=== PATIENT | male | born 1965 | race Caucasian/White ===

== ENCOUNTER 2018-08-11 15:55 | Inpatient (IN) | payer OTHER ==
[~2018-08-11] VITALS: Ht 175.3 cm; Wt 90.7 kg
[2018-08-11] MEDS ORDERED: DOXYCYCLINE HY100 M7 PO (15:59)
[2018-08-11] MEDS ORDERED: PROTONIX40 MG ORAL (15:59)
[2018-08-11] MEDS ORDERED: ALPRAZOLAM ER2 MG ORAL (15:59)
[2018-08-11] MEDS ORDERED: ALPRAZOLAM0.5 MG PO (15:59)
[2018-08-11] MEDS ORDERED: LACTULOSE10 GM/153 PO (15:59)
[2018-08-11] MEDS ORDERED: SPIRONOLACTONE100 MG ORAL (16:02)
[2018-08-11] MEDS ORDERED: FLOMAX0.4 MG ORAL (16:02)
[2018-08-11] MEDS ORDERED: OXYCODONE HCL15 M1 ORAL (16:02)
[2018-08-11 16:07] VITALS: BP 90/65
--- NOTE | 2018-08-11 16:10 | NUR ---
ED Nurse Note: Patient brought in to ER by ambulance due to abdominal pain 07/31. pt is aao x4 but sleepy. Per pt, it is normal for him. pt has distended abdomen with RUQ hernia. pt denied pain on RUQ hernia site. pt has old surgical site on medial abdomen which has been many years according to pt. surgical site completely healed and clean and intact. pt has cirrhosis and gets paracentesis once a week. per pt, last paracentesis was Sunday. calm and cooperative.
[2018-08-11] MEDS ORDERED: Isovue-300 100ml vial INJ PRN (16:15)
[2018-08-11 16:35] LABS: ANION GAP 6 mmol/L (5-15); BLOOD UREA NITROGEN 20 mg/dL (7-18); CALCIUM 8.1 MG/DL (8.5-10.1); CARBON DIOXIDE 31 MMOL/L (21-32); CHLORIDE 97 MMOL/L (98-107); CREATININE 1.7 MG/DL (0.55-1.30); POTASSIUM 4.2 MMOL/L (3.5-5.1); SODIUM 134 MMOL/L (136-145)
[2018-08-11 16:37] LABS: INR 1.4 (0.9-1.1)
[2018-08-11 16:38] LABS: AMMONIA 112 umol/L (11-32)
[2018-08-11 16:42] LABS: BASOPHILS % (AUTO) 1.1 % (0.0-2.0); EOSINOPHILS % (AUTO) 0.7 % (0.0-3.0); HEMATOCRIT 23.6 % (42.0-52.0); HEMOGLOBIN 8.3 G/DL (14.2-18.0); LYMPHOCYTES % (AUTO) 9.6 % (20.0-45.0); MEAN CORPUSCULAR VOLUME 80 FL (80-99); MONOCYTES % (AUTO) 8.2 % (1.0-10.0); NEUTROPHILS % (AUTO) 80.4 % (45.0-75.0); PLATELET COUNT 105 K/UL (150-450); RED BLOOD COUNT 2.95 M/UL (4.70-6.10); RED CELL DISTRIBUTION WIDTH 13.2 % (11.6-14.8); WHITE BLOOD COUNT 7.5 K/UL (4.8-10.8)
[2018-08-11 16:51] LABS: ALANINE AMINOTRANSFERASE 12 U/L (12-78); ALBUMIN 2.6 G/DL (3.4-5.0); ALBUMIN/GLOBULIN RATIO 0.8 (1.0-2.7); ALKALINE PHOSPHATASE 141 U/L (46-116); ASPARTATE AMINO TRANSFERASE 27 U/L (15-37); BILIRUBIN,TOTAL 1.1 MG/DL (0.2-1.0)
[2018-08-11 16:52] LABS: BILIRUBIN,DIRECT 0.4 MG/DL (0.0-0.3)
[2018-08-11] MEDS ORDERED: Lactulose 20gm/30ml UDC ORAL ONE (17:00)
--- NOTE | 2018-08-11 17:45 | NUR ---
ED Nurse Note: pt has pressure ulcers with slough on both legs. 1 on Rt inner ankle and 1 on Lt inner foot. pictures were taken and uploaded.
--- NOTE | 2018-08-11 17:51 | NUR ---
ED Nurse Note: pt could not provided urine sample as stating "I peed right before I got here. nothing's coming out." ERMD made aware.
[2018-08-11] MEDS ORDERED: XANAX1 MG ORAL (17:55)
[2018-08-11] MEDS ORDERED: OXYCODONE HCL10 MG ORAL (17:57)
[2018-08-11] MEDS ORDERED: FUROSEMIDE40 MG ORAL (17:58)
[2018-08-11] MEDS ORDERED: CREON DR 6,0001 EACH PO (17:58)
[2018-08-11] MEDS ORDERED: Piperacillin/Tazobactam 3.375 GM in NS 110 ML IVPB ONE (18:00)
--- NOTE | 2018-08-11 18:07 | Emergency Room Report ---
History of Present Illness General Chief Complaint: Abdominal Pain Source: Patient, Family Member, EMS Present Illness HPI 53-year-old male presents ED for evaluation. Brought in by EMS from home for increased lethargy 1 day. Patient states he feels confused more than baseline. History of cirrhosis. States he has paracentesis once a week. States he has some pain to his abdomen. Dull, 7 out of 10, nonradiating. Denies alcohol or drug use. No other aggravating relieving factors. Denies any other associated symptoms Allergies: Coded Allergies: LATEX, NATURAL RUBBER (Verified Allergy, Unknown, 08/11/18) NSAIDS (NON-STEROIDAL ANTI-INFLAMMA (Verified Allergy, Unknown, 08/11/18) Patient History Past Medical History: other - cirrhosis Past Surgical History: other - paracentesis, hernia repair Pertinent Family History: none Social History: Denies: smoking, alcohol use, drug use Reviewed Nursing Documentation: PMH: Agreed; PSxH: Agreed Nursing Documentation-PMH Past Medical History: No History, Except For Review of Systems All Other Systems: negative except mentioned in HPI Physical Exam Vital Signs Date Time Temp Pulse Resp B/P (MAP) Pulse Ox O2 Delivery O2 Flow Rate FiO2 08/11/18 15:48 98.2 86 20 128/83 96 Room Air Sp02 EP Interpretation: reviewed, normal General Appearance: no apparent distress, lethargic Head: normocephalic Eyes: bilateral eye PERRL, bilateral eye Scleral Injection ENT: normal ENT inspection Neck: normal inspection Respiratory: chest non-tender, lungs clear, normal breath sounds, speaking full sentences Cardiovascular #1: regular rate, rhythm, no edema Gastrointestinal: normal bowel sounds, distended, hernia - RUQ Rectal: deferred Genitourinary: no CVA tenderness Musculoskeletal: normal inspection Neurologic: other - lethargic Psychiatric: other - lethargic Skin: normal inspection Lymphatic: normal inspection Medical Decision Making Diagnostic Impression: Primary Impression: Hepatic encephalopathy Additional Impressions: Cirrhosis Qualified Codes: K70.31 - Alcoholic cirrhosis of liver with ascites Hernia Small bowel obstruction Renal insufficiency ER Course Hospital Course 53-year-old male presents to ED with lethargy. abd pain/distension. h/o cirrhosis Differential diagnoses include: ETOH, substance abuse, SBO Clinical course patient placed on stretcher. 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 After initial history and physical ordered labs, IV fluids, CT A/P Patient has difficult IV access. I placed Peripheral EJ line. Labs reviewed- BUN/Cr elevated, LFTs elevated, no leukocytosis, ammonia 112 CT shows cirrhotic liver, no significant ascites. There appears to be evidence of a bowel obstruction lactulose given. abx given. Dr Kinsey will consult on case case discussed with Dr. Simons and he agreed to accept the patient to his service for further care and support i. I feel this is a highly complex case requiring extensive working including EKG/Rhythm strip, Xray/CT/US, Blood/urine lab work, repeat exams while in ED, and administration of strong opiates/narcotics for pain control, admission to hospital or close patient follow up. Diagnosis - hepatic encephalopathy, cirrhosis, hernia, small bowel obstruction, renal insufficiency Admitted to floor in serious condition Labs Test 08/11/18 16:15 08/11/18 17:20 White Blood Count 7.5 K/UL (4.8-10.8) Red Blood Count 2.95 M/UL (4.70-6.10) Hemoglobin 8.3 G/DL (14.2-18.0) Hematocrit 23.6 % (42.0-52.0) Mean Corpuscular Volume 80 FL (80-99) Mean Corpuscular Hemoglobin 28.0 PG (27.0-31.0) Mean Corpuscular Hemoglobin Concent 35.0 G/DL (32.0-36.0) Red Cell Distribution Width 13.2 % (11.6-14.8) Platelet Count 105 K/UL (150-450) Mean Platelet Volume 5.2 FL (6.5-10.1) Neutrophils (%) (Auto) 80.4 % (45.0-75.0) Lymphocytes (%) (Auto) 9.6 % (20.0-45.0) Monocytes (%) (Auto) 8.2 % (1.0-10.0) Eosinophils (%) (Auto) 0.7 % (0.0-3.0) Basophils (%) (Auto) 1.1 % (0.0-2.0) Prothrombin Time 14.3 SEC (9.30-11.50) Prothromb Time International Ratio 1.4 (0.9-1.1) Activated Partial Thromboplast Time 37 SEC (23-33) Sodium Level 134 MMOL/L (136-145) Potassium Level 4.2 MMOL/L (3.5-5.1) Chloride Level 97 MMOL/L (98-107) Carbon Dioxide Level 31 MMOL/L (21-32) Anion Gap 6 mmol/L (5-15) Blood Urea Nitrogen 20 mg/dL (7-18) Creatinine 1.7 MG/DL (0.55-1.30) Estimat Glomerular Filtration Rate 42.4 mL/min (>60) Glucose Level 99 MG/DL (74-106) Lactic Acid Level 2.10 mmol/L (0.4-2.0) 1.60 mmol/L (0.66-2.22) Calcium Level 8.1 MG/DL (8.5-10.1) Total Bilirubin 1.1 MG/DL (0.2-1.0) Direct Bilirubin 0.4 MG/DL (0.0-0.3) Aspartate Amino Transf (AST/SGOT) 27 U/L (15-37) Alanine Aminotransferase (ALT/SGPT) 12 U/L (12-78) Alkaline Phosphatase 141 U/L (46-116) Ammonia 112 umol/L (11-32) Pro-B-Type Natriuretic Peptide 944 pg/mL (0-125) Total Protein 5.9 G/DL (6.4-8.2) Albumin 2.6 G/DL (3.4-5.0) Globulin 3.3 g/dL Albumin/Globulin Ratio 0.8 (1.0-2.7) Salicylates Level < 0.2 ug/mL (2.8-20) Acetaminophen Level 37 MCG/ML (10-30) Serum Alcohol 4 mg/dL Chest X-Ray Diagnostic Results Chest X-Ray Diagnostic Results : Chest X-Ray Ordered: Yes # of Views/Limited/Complete: 1 View Indication: Other EP Interpretation: Yes Interpretation: no consolidation, no effusion, no pneumothorax, no acute cardiopulmonary disease Impression: No acute disease Electronically Signed by: Electronically signed by Rainer Carreon MD CT/MRI/US Diagnostic Results CT/MRI/US Diagnostic Results : Imaging Test Ordered: CT A/P Impression ABDOMEN: Liver: Cirrhotic. Gallbladder and bile ducts: Large calcified gallstones. No biliary dilation. Pancreas: Normal Spleen: Normal Adrenals: Normal . Kidneys and ureters: Normal Stomach and bowel: Large volume of gas containing debris in the stomach presumably reflecting recent meal ingestion. There are multiple fluid-filled distended small bowel loops with air-fluid levels, suspicious for small bowel obstruction. Large bowel shows scattered diverticuli and a moderate amount of fecal debris in the majority of its course. Appendix: Normal PELVIS: Bladder: Distended. Otherwise unremarkable. Reproductive: Right indirect inguinal hernia is present containing fluid that is indeterminate for plain ascitic fluid versus a possibly entrapped fluid- distended small bowel loop. Correlation with physical exam and possible ultrasound is recommended. ABDOMEN and PELVIS: Intraperitoneal space: Small amount of free intraperitoneal fluid. No free intraperitoneal gas. Bones/joints: Postop changes from posterior decompression at L5 with tyesha and pedicle screw construct fusion and interbody L5-S1 prosthesis are noted. A left total hip arthroplasty is also present.. No acute fracture. No dislocation. Soft tissues: A 7.1 x 2.5 x 8.5 cm fluid collection in the subcutaneous fat of the right upper quadrant abdomen is present, presumably representing collection of fluid from a ventral abdominal wall hernia. There are additional surgical changes consistent with ventral abdominal hernia repair with clumped, irregular dense tissue resembling hernia repair mesh that extends in irregular fashion into the abdominal cavity to abut small bowel loops from just below the umbilicus. There are surgical clips at its inferior margin. Fluidlike density is present within it. Vasculature: Normal. Lymph nodes: Normal . Last Vital Signs Date Time Temp Pulse Resp B/P (MAP) Pulse Ox O2 Delivery O2 Flow Rate FiO2 08/11/18 16:07 98.2 87 12 90/65 96 Room Air Status: improved Disposition: ADMITTED INPATIENT Condition: Serious Referrals: [id number],REFERRING (PCP) Rainer Carreon MD Aug 11, 2018 18:06
--- NOTE | 2018-08-11 18:39 | NUR ---
ED Nurse Note: Report given to MATY Barth. pt will be transferred at 1930 as MS unit's request.
--- NOTE | 2018-08-11 19:12 | NUR ---
HAND-OFF: Report given to MATY Collins. Report given already. pt will be transferred to [facility] unit at 1930. No changes since report given. belonging list in chart.
--- NOTE | 2018-08-11 19:47 | NUR ---
ED Nurse Note: PT BEING TAKEN TO UNIT FOR ADMISSION, PT IS IN BED AWAKE AND ALERT, SPOUSE AT BEDSIDE, IV SITE INTACT, BELONGINGS LIST ON CHART, PT BEING TAKNE TO FLOOR UNIT VIA GURNEY.
[2018-08-11 20:10] VITALS: BP 96/43
--- NOTE | 2018-08-11 20:10 | NUR ---
NURSE NOTES: Received pt from E.Juan via [facility]. Pt is alert, awake and oriented x 4. Pt ambulated from [place] to bed to the bathroom with cane unsteady gait. Safely back in bed w/o distress noted. Pt c/o abdominal pain that radiates to lower back 07/31. Will admit pt to floor. All belongings inventoried. IV L EJ #20 patent and intact. No distress noted. Pt refused to send valuables to safe. Safety measures maintained. Bed in lowest position and locked, side rails up x 2, call light within reach. Pt refused to have bed alarm on. Instructed pt to call when need to get out of bed. at bedside. Will continue to monitor.
--- NOTE | 2018-08-11 20:15 | NUR ---
NURSE NOTES: Informed MD of pt's B/P 96/43, HR 59. No orders given. Will continue to monitor.
--- NOTE | 2018-08-11 21:05 | NUR ---
NURSE NOTES: Paged Dr. Simons for admission orders awaiting for call back.
--- NOTE | 2018-08-11 22:05 | NUR ---
NURSE NOTES: Called answering service and spoke with Dr. Simons. Admission orders obtained. Informed MD of H/H 8.3, 23.6, Plt 105, Na+ 134, Ammonia level 112. No additional orders given.
[2018-08-11] MEDS ORDERED: oxyCODONE 5mg IR tab ORAL PRN (22:15)
[2018-08-11] MEDS: oxyCODONE 5mg IR tab ORAL PRN (23:36)
[2018-08-12] VITALS: BP 96/50
[2018-08-12 00:08] LABS: APPEARANCE,URINE CLEAR; BILIRUBIN, URINE NEGATIVE (NEGATIVE); GLUCOSE, URINE (UA) NEGATIVE (NEGATIVE); KETONES,URINE NEGATIVE (NEGATIVE); LEUKOCYTE ESTERASE ,URINE NEGATIVE (NEGATIVE); NITRITE,URINE NEGATIVE (NEGATIVE); PH,URINE 5 (4.5-8.0); PROTEIN,URINE NEGATIVE (NEGATIVE); UROBILINOGEN,URINE NORMAL MG/DL (0.0-1.0)
[2018-08-12 00:16] LABS: COLOR,URINE YELLOW
[2018-08-12 04:00] VITALS: BP 101/56
[2018-08-12] MEDS: oxyCODONE 5mg IR tab ORAL PRN ×3 (05:23→23:49)
--- NOTE | 2018-08-12 07:20 | NUR ---
NURSE NOTES: NURSE NOTES: Left message for Brooklynn (Wound care nurse) to see pt.
--- NOTE | 2018-08-12 07:21 | NUR ---
NURSE NOTES: Pt's own medication Lactulose given to Maco (pharmacy clinical specialist).
--- NOTE | 2018-08-12 07:22 | NUR ---
NURSE NOTES:BEDSIDE ROUNDS DONE WITH NIGHT RN(TRENA),PATIENT EATING BREAKFAST,A/OX4,ROOM AIR,ABDOMEN DISTENDED(H/O HAVING PARACENTESIS WEEKLY)NO C/O PAIN.WOUND ASSESSMENT DONE,AWAITING FOR WOUND CARE NURSE,IV SITE ON LAJ INTACT.NO REDNESS ON SITE.PLAN OF CARE FOR THE DAY DISCUSSED AND WITH UNDERSTANDING.
--- NOTE | 2018-08-12 07:22 | NUR ---
HAND-OFF: Report given to MATY Mendes. Pt in stable condition.
[2018-08-12 07:52] VITALS: BP 97/57
[2018-08-12] MEDS: Docusate 100mg cap ORAL SCH ×2 (08:10→18:02)
[2018-08-12] MEDS: Lactulose 10gm/15ml UDC ORAL SCH ×4 (08:10→20:22)
[2018-08-12] MEDS: Pancrelipase Dr Cap ORAL SCH ×2 (08:12→18:04)
[2018-08-12] MEDS: Spironolactone 50mg tab ORAL SCH (08:13)
[2018-08-12] MEDS: ALPRAZolam 0.25mg tab ORAL SCH ×2 (08:31→18:55)
--- NOTE | 2018-08-12 08:55 | Diagnostic Imaging Report ---
Indication: Chest pain Technique: One view of the chest Comparison: none Findings: Lungs and pleural spaces are clear. Heart size is normal Impression: No acute process
[2018-08-12] MEDS ORDERED: ALPRAZolam 0.5mg tab ORAL ONE (09:00)
--- NOTE | 2018-08-12 09:12 | Diagnostic Imaging Report ---
Indication: Abdominal pain Technique: Spiral acquisitions obtained through the abdomen and pelvis. No oral contrast utilized, per emergency room physician request No IV contrast utilized, per referring physician request.. Multiplanar reconstructions were generated. Total dose length product 1062 mGycm. CTDIvol(s) 15, 14 mGy. Dose reduction achieved using automated exposure control Comparison: None Findings: There is an indirect right inguinal hernia. This contains a single loop of small bowel which is dilated. Small bowel loops proximal to the hernia are dilated. The exiting small bowel is not well visualized. The distal ileum is not dilated. In addition to the hernia, there is questionably a transition point in the right lower quadrant. The appendix is normal. Moderate amount of stool is seen in the proximal colon. There is no evidence of diverticulosis or diverticulitis. What appears to be crumpled hernia mesh material is seen in the lower abdominal midline anteriorly. There are mesh anchors also present. There is a small amount of ascites fluid present, predominantly over the dome of the liver and spleen and also in the pelvis. Some ascites fluid is seen herniated into a right paracentral ventral hernia. No free intraperitoneal gas is demonstrated. The distal esophagus is unremarkable. The stomach is distended with food. The duodenum is unremarkable. The liver demonstrates nodular surface, consistent with cirrhotic change. Small splenic hilar and perigastric varices are demonstrated. The gallbladder contains multiple gallstones. The pancreas is somewhat atrophic, otherwise unremarkable. The spleen is enlarged, measuring 16.6 cm long axis dimension. The adrenals and kidneys are unremarkable. No retroperitoneal or mesenteric mass or adenopathy. No pelvic mass or adenopathy. The bladder is markedly distended. There is considerable congestion of the mesenteric fat. There is also edema of the subcutaneous fat. Numerous abdominal wall collateral vessels are noted. There is evidence of some subcutaneous scarring in the right posterior hip region. There is a left hip arthroplasty prosthesis in place. There is evidence of prior spinal fusion surgery at L5-S1 with posterior L5 and S1 laminectomies. The included lung bases demonstrate some hazy groundglass opacity bilaterally, left greater than right Impression: Findings consistent with small bowel obstruction. This is probably due to an indirect right inguinal hernia. However, the exiting bowel from the hernia is not well visualized and there is a possibility of a transition point in the right lower quadrant as well Evidence of hepatic cirrhosis. Evidence of portal hypertension with splenomegaly, varices,, mesenteric fat congestion, abdominal wall collaterals, and ascites Evidence of prior ventral hernia repair. There appears to be crumbled and possibly displaced mesh material in the lower abdominal midline Ascites fluid within a right upper abdominal ventral hernia just to the right of midline Hazy bilateral pulmonary parenchymal groundglass opacities, may reflect a small amount of pulmonary edema Cholelithiasis Distended bladder Other findings as noted, including right hip region subcutaneous scarring, left hip prosthesis, evidence of prior L5-S1 fusion surgery This agrees with the preliminary interpretation provided overnight by [facility] teleradiology service. The CT scanner at [facility] is accredited by the [employer] and the scans are performed using protocols designed to limit radiation exposure to as low as reasonably achievable to attain images of sufficient resolution adequate for diagnostic evaluation.
[2018-08-12 11:46] VITALS: BP 107/63
--- NOTE | 2018-08-12 12:54 | NUR ---
CASE MANAGEMENT:REVIEW 53 YR OLD MALE BIBA FROM HOME CC: ABDOMINAL PAIN AND LETHARGY PMH: ASCITES ~ DRAINS FLUID ONCE A WEEK AT [facility]. LAST PARACENTESIS WAS SUNDAY SI: HEPATIC ENCEPHALOPATHY CIRRHOSIS. SBO 98.3 86 20 128/83 96% ON RA H/H-8.3/23.6 PLT-105 BUN+20 CR+1.7 AMMONIA+112 IS: 1L NS BOLUS X1 LACTULOSE PO CT ABD/PELVIS CHEST XRAY BLOOD CX : MED/SURG STATUS 3 EAST INTERQUAL CRITERIA MET
--- NOTE | 2018-08-12 12:56 | NUR ---
*-* INSURANCE *-* AVAILABLE CLINICALS HAVE BEEN FAXED TO: [facility] SVETLANA: FRANDY P:[phone] F:[phone]
--- NOTE | 2018-08-12 14:52 | Consultation ---
History of Present Illness General Date patient seen: Aug 12, 2018 Reason for Hospitalization: Abdominal Pain Present Illness HPI 53year old male with extensive EtOH history and known liver cirrhosis on liver transplant list at [facility] patient presented with acute decompensation / altered mental status. states he felt different and could not think clearly. came in from home with . no n/v/f/c. abdominal discomfort from known ventral and inguinal hernias. +flatus +BM. on admission had CT with concerns for sbo . surgery called to evaluate and assist with care. patient seen, chart reviewed, patient examined. Allergies: Coded Allergies: LATEX, NATURAL RUBBER (Verified Allergy, Unknown, 08/11/18) NSAIDS (NON-STEROIDAL ANTI-INFLAMMA (Verified Allergy, Unknown, 08/11/18) Medication History Scheduled Alprazolam* (Xanax*), 1 TAB ORAL BID, (Reported) Furosemide* (Lasix*), 40 MG ORAL DAILY, (Reported) Lactulose (Lactulose), 30 ML PO DAILY, (Reported) Lipase/Protease/Amylase (Creon Dr 6,000 Units Capsule), 3 CAP PO BID, (Reported) Pantoprazole* (Protonix*), 40 MG ORAL DAILY, (Reported) Spironolactone* (Spironolactone*), 100 MG ORAL DAILY, (Reported) Tamsulosin HCl (Flomax), 0.4 MG ORAL DAILY, (Reported) Scheduled PRN Oxycodone Hcl* (Oxycodone Hcl*), 20 MG ORAL TID PRN for For Pain, (Reported) Discontinued Medications Alprazolam* (Xanax*), 2 MG PO TWICE A DAY, (Reported) Discontinued Reason: Prescription changed Oxycodone Hcl* (Oxycodone Hcl*), 20 MG ORAL THREE TIMES A DAY PRN for For Pain, (Reported) Discontinued Reason: Prescription changed Patient History History Provided By: Patient, Family Member, Medical Record, PMD Healthcare decision maker Resuscitation status Full Code Advanced Directive on File Past Medical/Surgical History Past Medical/Surgical History: (1) Hernia (2) Renal insufficiency (3) Small bowel obstruction (4) Hepatic encephalopathy (5) Cirrhosis (6) Abdominal pain Review of Systems Review of Symptoms General ROS: no weight loss or fever Psychological ROS: no depression or mood changes, no memory loss Ophthalmic ROS: no visual changes or eye irritation ENT ROS: no nasal congestion, hearing loss, dizziness Allergy and Immunology ROS: no allergic symptoms or urticaria Hematological and Lymphatic ROS: no swollen glands, unusual bleeding or bruising Endocrine ROS: no polyuria, polydipsia, weight changes, temperature intolerance Respiratory ROS: no cough, shortness of breath, or wheezing Cardiovascular ROS: no chest pain or dyspnea on exertion Gastrointestinal ROS: denies abdominal pain, no bright red blood in stool. Musculoskeletal ROS: no myalgias or arthralgias Neurological ROS: no TIA or stroke symptoms Dermatological ROS: no new or changing skin lesions, rashes or pruritis Physical Exam Physical Exam General appearance: alert, cooperative, no distress, appears stated age Head: Normocephalic, without obvious abnormality, atraumatic Eyes: conjunctivae/corneas clear. PERRL, EOM's intact. Fundi benign Throat: Lips, mucosa, and tongue normal. Teeth and gums normal Neck: supple, symmetrical, trachea midline, no adenopathy, thyroid: not enlarged, symmetric, no tenderness/mass/nodules, no carotid bruit and no JVD Lungs: clear to auscultation bilaterally Heart: regular rate and rhythm, S1, S2 normal, no murmur, click, rub or gallop Abdomen: soft, non-tender. Bowel sounds normal. No masses, no organomegaly. reducible right inguinal hernia. large prior midline ventral hernia repair with palpable displaced mesh and recurrence noted. Extremities: extremities normal, atraumatic, no cyanosis or edema Pulses: 2+ and symmetric Skin: Skin color, texture, turgor normal. No rashes or lesions Neurologic: Grossly normal Last 24 Hour Vital Signs Date Time Temp Pulse Resp B/P (MAP) Pulse Ox O2 Delivery O2 Flow Rate FiO2 08/12/18 11:46 98.8 70 19 107/63 (78) 100 08/12/18 07:52 98.3 69 18 97/57 (70) 99 08/12/18 07:22 Room Air 08/12/18 04:00 98.1 58 16 101/56 (71) 96 08/12/18 00:00 97.8 57 16 96/50 (65) 98 08/11/18 21:00 Room Air 08/11/18 20:12 Room Air 08/11/18 20:10 97.1 59 16 96/43 (60) 98 08/11/18 19:49 98.2 87 12 96 Room Air 08/11/18 16:07 98.2 87 12 96 Room Air 08/11/18 16:07 86 12 Room Air 08/11/18 15:48 98.2 86 20 128/83 96 Room Air Intake and Output 08/11/18 08/12/18 18:59 06:59 Intake Total 400 ml 680 ml Output Total 1100 ml Balance 400 ml -420 ml Intake Oral 0 ml 480 ml IV Total 400 ml 200 ml Output Urine Total 1100 ml Laboratory Tests Test 08/11/18 16:15 08/11/18 17:20 08/11/18 23:43 White Blood Count 7.5 K/UL (4.8-10.8) Red Blood Count 2.95 M/UL (4.70-6.10) L Hemoglobin 8.3 G/DL (14.2-18.0) L Hematocrit 23.6 % (42.0-52.0) L Mean Corpuscular Volume 80 FL (80-99) Mean Corpuscular Hemoglobin 28.0 PG (27.0-31.0) Mean Corpuscular Hemoglobin Concent 35.0 G/DL (32.0-36.0) Red Cell Distribution Width 13.2 % (11.6-14.8) Platelet Count 105 K/UL (150-450) L Mean Platelet Volume 5.2 FL (6.5-10.1) L Neutrophils (%) (Auto) 80.4 % (45.0-75.0) H Lymphocytes (%) (Auto) 9.6 % (20.0-45.0) L Monocytes (%) (Auto) 8.2 % (1.0-10.0) Eosinophils (%) (Auto) 0.7 % (0.0-3.0) Basophils (%) (Auto) 1.1 % (0.0-2.0) Prothrombin Time 14.3 SEC (9.30-11.50) H Prothromb Time International Ratio 1.4 (0.9-1.1) H Activated Partial Thromboplast Time 37 SEC (23-33) H Sodium Level 134 MMOL/L (136-145) L Potassium Level 4.2 MMOL/L (3.5-5.1) Chloride Level 97 MMOL/L (98-107) L Carbon Dioxide Level 31 MMOL/L (21-32) Anion Gap 6 mmol/L (5-15) Blood Urea Nitrogen 20 mg/dL (7-18) H Creatinine 1.7 MG/DL (0.55-1.30) H Estimat Glomerular Filtration Rate 42.4 mL/min (>60) Glucose Level 99 MG/DL (74-106) Lactic Acid Level 2.10 mmol/L (0.4-2.0) H 1.60 mmol/L (0.66-2.22) Calcium Level 8.1 MG/DL (8.5-10.1) L Total Bilirubin 1.1 MG/DL (0.2-1.0) H Direct Bilirubin 0.4 MG/DL (0.0-0.3) H Aspartate Amino Transf (AST/SGOT) 27 U/L (15-37) Alanine Aminotransferase (ALT/SGPT) 12 U/L (12-78) Alkaline Phosphatase 141 U/L (46-116) H Ammonia 112 umol/L (11-32) H Pro-B-Type Natriuretic Peptide 944 pg/mL (0-125) H Total Protein 5.9 G/DL (6.4-8.2) L Albumin 2.6 G/DL (3.4-5.0) L Globulin 3.3 g/dL Albumin/Globulin Ratio 0.8 (1.0-2.7) L Salicylates Level < 0.2 ug/mL (2.8-20) L Acetaminophen Level 37 MCG/ML (10-30) H Serum Alcohol 4 mg/dL Urine Color Yellow Urine Appearance Clear Urine pH 5 (4.5-8.0) Urine Specific [place] 1.010 (1.005-1.035) Urine Protein Negative (NEGATIVE) Urine Glucose (UA) Negative (NEGATIVE) Urine Ketones Negative (NEGATIVE) Urine Blood Negative (NEGATIVE) Urine Nitrite Negative (NEGATIVE) Urine Bilirubin Negative (NEGATIVE) Urine Urobilinogen Normal MG/DL (0.0-1.0) Urine Leukocyte Esterase Negative (NEGATIVE) Urine Opiates Screen Negative (NEGATIVE) Urine Barbiturates Screen Negative (NEGATIVE) Phencyclidine (PCP) Screen Negative (NEGATIVE) Urine Amphetamines Screen Negative (NEGATIVE) Urine Benzodiazepines Screen Positive (NEGATIVE) H Urine Cocaine Screen Negative (NEGATIVE) Urine Marijuana (THC) Screen Negative (NEGATIVE) Height (Feet): 5 Height (Inches): 9.00 Weight (Pounds): 200 Medications Current Medications Medications (Trade) Dose Ordered Sig/Kaycee Route PRN Reason Start Time Stop Time Status Last Admin Dose Admin Acetaminophen (Tylenol) 650 mg Q4H PRN ORAL Mild Pain/Temp > 100.5 08/11/18 22:15 09/10/18 22:14 Alprazolam (Xanax) 1 mg BID ORAL 08/12/18 09:00 08/19/18 08:59 08/12/18 08:31 Amylase/Lipase/ Protease (Pancrease) 3 ea BID ORAL 08/12/18 09:00 09/11/18 08:59 08/12/18 08:12 Docusate Sodium (Colace) 100 mg TWICE A DAY ORAL 08/12/18 09:00 09/11/18 08:59 08/12/18 08:10 Furosemide (Lasix) 20 mg DAILY IV 08/12/18 09:00 09/11/18 08:59 08/12/18 08:13 Lactulose (Cephulac) 10 gm FOUR TIMES A DAY ORAL 08/12/18 09:00 09/11/18 08:59 08/12/18 13:42 Ondansetron HCl (Zofran) 4 mg Q6H PRN IVP Nausea & Vomiting 08/11/18 22:15 09/10/18 22:14 Oxycodone HCl (Roxicodone) 10 mg Q4H PRN ORAL Breakthrough Pain 08/11/18 23:30 08/18/18 23:29 08/12/18 05:23 Pantoprazole (Protonix) 40 mg DAILY ORAL 08/12/18 09:00 09/11/18 08:59 08/12/18 08:13 Potassium Chloride (K-Dur) 20 meq DAILY ORAL 08/12/18 09:00 09/11/18 08:59 08/12/18 08:11 Spironolactone (Aldactone) 100 mg DAILY ORAL 08/12/18 09:00 09/11/18 08:59 Tamsulosin HCl (Flomax) 0.4 mg BEDTIME ORAL 08/12/18 21:00 09/11/18 20:59 Tramadol HCl (Ultram) 50 mg Q4HR PRN ORAL Moderate Breakthru Pain (5-7) 08/11/18 22:15 08/18/18 22:14 Assessment/Plan Problem List: (1) Hernia Assessment & Plan: right inguinal hernia reducible. can evaluate as outpatient currently acutely decompensated if asymptomatic and reducible would recommend repair at later date ICD Codes: K46.9 - Unspecified abdominal hernia without obstruction or gangrene SNOMED: 98004003 (2) Renal insufficiency ICD Codes: N28.9 - Disorder of kidney and ureter, unspecified SNOMED: 651534243, 016625793 (3) Small bowel obstruction Assessment & Plan: Impression: Findings consistent with small bowel obstruction. This is probably due to an indirect right inguinal hernia. However, the exiting bowel from the hernia is not well visualized and there is a possibility of a transition point in the right lower quadrant as well Evidence of hepatic cirrhosis. Evidence of portal hypertension with splenomegaly , varices,, mesenteric fat congestion, abdominal wall collaterals, and ascites Evidence of prior ventral hernia repair. There appears to be crumbled and possibly displaced mesh material in the lower abdominal midline Ascites fluid within a right upper abdominal ventral hernia just to the right of midline -clinically not obstructed at this time. -possible resolved? -will follow clinically thank you ICD Codes: K56.609 - Unspecified intestinal obstruction, unspecified as to partial versus complete obstruction SNOMED: 812668144, 574887126 (4) Hepatic encephalopathy ICD Codes: K72.90 - Hepatic failure, unspecified without coma SNOMED: 28064104, 344182369 (5) Cirrhosis ICD Codes: K74.60 - Unspecified cirrhosis of liver SNOMED: 17388840 Qualifiers: Qualified Codes: K70.31 - Alcoholic cirrhosis of liver with ascites (6) Abdominal pain ICD Codes: R10.9 - Unspecified abdominal pain SNOMED: 83391828 Shoaib Kinsey Aug 12, 2018 14:52
--- NOTE | 2018-08-12 15:11 | NUR ---
NURSE NOTES: WOUND CARE NOTES: Pt presented on admission with multiple wounds. Full thickness wound noted to R scapula of unknown etiology .Pt stated unaware of how or when he acquired wound. Dry brown scab at base of wound with adherent borders that are dry .No erythema or fluctuance noted periwound. (L)1.5cm x (W)1.8cm. Full thickness ulcer noted to plantar L foot. Scattered Biofilm at base of wound,otherwise wound is viable and moist. Erythema without elevation in skin temp or fluctuance along edges and periwound.Small amt non-odorous serous exudate noted. NO odor noted (L)3.8cm x (W)1.5cm x (D)0.3cm. Unstable wound noted to medial aspect of distal R tibia.100% yellow slough at base of wound. Erythema along edges. Periwound without induration or fluctuance.(L)3.4cm x (W)1.3cm. NO odor or exudate noted. Tx.Plan: Cleanse Wound Plantar L foot with Saline.Apply Therahoney. Cavilon Skin Barrier periwound. Cover with Optifoam drsg. Change every 3 days and prn. Cleanse Wound Medial Aspect Distal R Tibia with Saline.Apply Therahoney. Apply Cavilon Skin Barrier Periwound.Cover with Optifoam drsg. Change every 3 days and prn. Cleanse wound R scapula with saline.Apply Therahoney. Apply Cavilon Skin Barrier periwound.Cover with Optifoam drsg. Change every 3 days and prn. Cue and encourage pt to reposition at least every 2hours or as tolerated. Off-load heels with pillow.
[2018-08-12 16:04] VITALS: BP 108/63
--- NOTE | 2018-08-12 19:35 | NUR ---
HAND-OFF: Report given to ZACHERY RUTLEDGE.PATIENT STABLE.
--- NOTE | 2018-08-12 19:37 | NUR ---
NURSE NOTES: Received patient in bed, asleep, at bedside, patient is alert and oriented x4, able to make his needs known, on RA, VSS, afebrile, no acute distress noted. Call light is within reach, bed is in low position, locked, alarm is on.
[2018-08-12 20:00] VITALS: BP 111/48
[2018-08-12] MEDS: traMADol 50mg tab ORAL PRN (20:33)
[2018-08-12] MEDS ORDERED: Tamsulosin 0.4mg cap ORAL SCH (21:00)
--- NOTE | 2018-08-12 22:30 | History and Physical Report ---
DATE OF ADMISSION: 08/11/2018 NOTE: POOR AUDIO HISTORY OF PRESENT ILLNESS: This is a 53-year-old white male with past medical history of alcohol abuse, for last many years and had quit alcohol for one year, came to the room for generalized weakness . The patient denies any fever or chills. He denies any chest pain or palpitations, but he has multiple and he also has a big surgery on the stomach due to the small bowel obstruction. PAST MEDICAL HISTORY: He has history . MEDICATIONS: He is taking . ALLERGIES: NKA. FAMILY HISTORY: Noncontributory. SOCIAL HISTORY: The patient lives at home with . He quit drinking. Denied any illegal drugs. REVIEW OF SYSTEMS: GENERAL: Generalized weakness, tired, fatigued, and have multiple sores. VITAL SIGNS: Blood pressure is 110/70, pulse 60, respirations 18, no fever. . HEENT: NAD. CHEST: Bilaterally clear. CARDIOVASCULAR: Regular rhythm. No gallop. No murmur. ABDOMEN: Distended. He have multiple abdominal hernia and . EXTREMITIES: . LABORATORY DATA: Labs are pending. ASSESSMENT AND PLAN: 1. Hepatic encephalopathy. 2. Cirrhosis. 3. Ascites. 4. History of alcohol abuse. 5. Status post laparotomy for small bowel obstruction. PLAN: We will admit on medical floor. Continue . Consider PT and OT. GI consult. Kristofer Simons M.D. DR: INES JOB#: [id number] CC:
[2018-08-13] VITALS: BP 113/52
[2018-08-13] MEDS: traMADol 50mg tab ORAL PRN ×2 (02:20→06:44)
[2018-08-13 04:00] VITALS: BP 118/54
[2018-08-13] MEDS: oxyCODONE 5mg IR tab ORAL PRN (04:03)
[2018-08-13 06:36] LABS: INR 1.3 (0.9-1.1)
[2018-08-13 06:41] LABS: BASOPHILS % (AUTO) 0.8 % (0.0-2.0); EOSINOPHILS % (AUTO) 2.1 % (0.0-3.0); HEMOGLOBIN 8.2 G/DL (14.2-18.0); MEAN CORPUSCULAR VOLUME 84 FL (80-99); MONOCYTES % (AUTO) 11.8 % (1.0-10.0); NEUTROPHILS % (AUTO) 71.4 % (45.0-75.0); PLATELET COUNT 111 K/UL (150-450); RED BLOOD COUNT 2.98 M/UL (4.70-6.10); RED CELL DISTRIBUTION WIDTH 14.1 % (11.6-14.8); WHITE BLOOD COUNT 4.2 K/UL (4.8-10.8)
--- NOTE | 2018-08-13 06:50 | NUR ---
HAND-OFF: Report given to Lori RUTLEDGE.
[2018-08-13 07:13] LABS: ALANINE AMINOTRANSFERASE 12 U/L (12-78); ALBUMIN 2.5 G/DL (3.4-5.0); ALBUMIN/GLOBULIN RATIO 0.8 (1.0-2.7); ALKALINE PHOSPHATASE 136 U/L (46-116); ANION GAP 7 mmol/L (5-15); ASPARTATE AMINO TRANSFERASE 25 U/L (15-37); BILIRUBIN,TOTAL 0.8 MG/DL (0.2-1.0); BLOOD UREA NITROGEN 16 mg/dL (7-18); CALCIUM 8.2 MG/DL (8.5-10.1); CARBON DIOXIDE 28 MMOL/L (21-32); CHLORIDE 102 MMOL/L (98-107); CREATININE 1.5 MG/DL (0.55-1.30); POTASSIUM 4.4 MMOL/L (3.5-5.1); SODIUM 137 MMOL/L (136-145)
[2018-08-13 07:17] LABS: AMMONIA 102 umol/L (11-32)
[2018-08-13 08:00] VITALS: BP 97/58
[2018-08-13] MEDS: Lactulose 10gm/15ml UDC ORAL SCH ×2 (08:39→13:47)
[2018-08-13] MEDS: Pancrelipase Dr Cap ORAL SCH (08:40)
[2018-08-13] MEDS: Docusate 100mg cap ORAL SCH (08:40)
[2018-08-13] MEDS: Spironolactone 50mg tab ORAL SCH (08:40)
[2018-08-13] MEDS ORDERED: oxyCODONE 5mg IR tab ORAL PRN (08:53)
[2018-08-13] MEDS ORDERED: ALPRAZolam 0.25mg tab ORAL SCH (09:00)
--- NOTE | 2018-08-13 09:00 | NUR ---
NURSE NOTES: Received report from Rina RUTLEDGE, pt a/a/o laying in bed with no signs of distress or other issues at this time. during round RN changed dressing with terahoney and Optifoam on the foot. Also applied terahoney on the sintia as indicated by MD. pt has an IV on the left neck gauge#20 heplock. at bed side. call light within reach, bed in lowest position. side rales up x2. plan to d/c home today. I will f/u as needed.
--- NOTE | 2018-08-13 09:10 | NUR ---
PT EVALUATION NOTE Patient seen for initial evaluation, see complete evaluation for details. Patient presents with generalized weakness which impairs patient's balance and ability to perform mobility tasks. Patient will benefit from skilled inpatient PT intervention to address strength, balance, safety and functional mobility. Anticipate discharge home with 's assistance once medically cleared by MD. Patient has FWW and SPC, no further DME needs anticipated at this time. Addendum: 08/13/18 at 1230 by ANDRIA CRYSTAL PT Amended: Links added.
--- NOTE | 2018-08-13 11:41 | NUR ---
*-* INSURANCE *-* UPDATED CLINICALS HAVE BEEN FAXED TO: [facility] SVETLANA: FRANDY P:[phone] F:[phone]
[2018-08-13 12:00] VITALS: BP 105/67
--- NOTE | 2018-08-13 12:26 | Surgery Progress Note ---
Surgery Progress Note Subjective Additional Comments no acute events. comfortable. tolerating diet. mental status improved. no n/v /f/c. pain improved Objective Last 24 Hour Vital Signs Date Time Temp Pulse Resp B/P (MAP) Pulse Ox O2 Delivery O2 Flow Rate FiO2 08/13/18 12:00 98.6 55 20 105/67 (80) 95 08/13/18 09:00 Room Air 08/13/18 08:00 98.1 58 20 97/58 (71) 98 08/13/18 07:14 98.2 08/13/18 04:00 98.2 66 118/54 (75) 08/13/18 00:00 98.3 63 18 113/52 (72) 08/12/18 21:18 Room Air 08/12/18 20:00 98.9 69 17 111/48 (69) 96 08/12/18 16:04 98.5 65 19 108/63 (78) 99 I&O Intake and Output 08/12/18 08/13/18 18:59 06:59 Intake Total 2500 ml Balance 2500 ml Intake Oral 2500 ml # Voids 3 3 Cardiovascular: RSR Respiratory: clear Abdomen: soft, distended, non-tender, present bowel sounds Extremities: no tenderness, no cyanosis Laboratory Tests Test 08/13/18 05:30 White Blood Count 4.2 K/UL (4.8-10.8) L Red Blood Count 2.98 M/UL (4.70-6.10) L Hemoglobin 8.2 G/DL (14.2-18.0) L Hematocrit 25.0 % (42.0-52.0) L Mean Corpuscular Volume 84 FL (80-99) Mean Corpuscular Hemoglobin 27.6 PG (27.0-31.0) Mean Corpuscular Hemoglobin Concent 33.0 G/DL (32.0-36.0) Red Cell Distribution Width 14.1 % (11.6-14.8) Platelet Count 111 K/UL (150-450) L Mean Platelet Volume 5.3 FL (6.5-10.1) L Neutrophils (%) (Auto) 71.4 % (45.0-75.0) Lymphocytes (%) (Auto) 14.0 % (20.0-45.0) L Monocytes (%) (Auto) 11.8 % (1.0-10.0) H Eosinophils (%) (Auto) 2.1 % (0.0-3.0) Basophils (%) (Auto) 0.8 % (0.0-2.0) Erythrocyte Sedimentation Rate 48 MM/HR (0-20) H Prothrombin Time 13.5 SEC (9.30-11.50) H Prothromb Time International Ratio 1.3 (0.9-1.1) H Activated Partial Thromboplast Time 38 SEC (23-33) H Sodium Level 137 MMOL/L (136-145) Potassium Level 4.4 MMOL/L (3.5-5.1) Chloride Level 102 MMOL/L (98-107) Carbon Dioxide Level 28 MMOL/L (21-32) Anion Gap 7 mmol/L (5-15) Blood Urea Nitrogen 16 mg/dL (7-18) Creatinine 1.5 MG/DL (0.55-1.30) H Estimat Glomerular Filtration Rate 49.0 mL/min (>60) Glucose Level 96 MG/DL (74-106) Calcium Level 8.2 MG/DL (8.5-10.1) L Total Bilirubin 0.8 MG/DL (0.2-1.0) Aspartate Amino Transf (AST/SGOT) 25 U/L (15-37) Alanine Aminotransferase (ALT/SGPT) 12 U/L (12-78) Alkaline Phosphatase 136 U/L (46-116) H Ammonia 102 umol/L (11-32) H C-Reactive Protein, Quantitative 4.3 mg/dL (0.00-0.90) H Total Protein 5.5 G/DL (6.4-8.2) L Albumin 2.5 G/DL (3.4-5.0) L Globulin 3.0 g/dL Albumin/Globulin Ratio 0.8 (1.0-2.7) L Amylase Level 44 U/L (25-115) Lipase 123 U/L (73-393) Plan Problems: (1) Hernia Assessment & Plan: right inguinal hernia reducible. can evaluate as outpatient currently acutely decompensated if asymptomatic and reducible would recommend repair at later date (2) Renal insufficiency (3) Small bowel obstruction Assessment & Plan: Impression: Findings consistent with small bowel obstruction. This is probably due to an indirect right inguinal hernia. However, the exiting bowel from the hernia is not well visualized and there is a possibility of a transition point in the right lower quadrant as well Evidence of hepatic cirrhosis. Evidence of portal hypertension with splenomegaly , varices,, mesenteric fat congestion, abdominal wall collaterals, and ascites Evidence of prior ventral hernia repair. There appears to be crumbled and possibly displaced mesh material in the lower abdominal midline Ascites fluid within a right upper abdominal ventral hernia just to the right of midline -clinically not obstructed at this time. -possible resolved? -will follow clinically -diet as tolerated -d/c planning f/u with [facility] for surgical plan and transplant thank you (4) Hepatic encephalopathy (5) Cirrhosis (6) Abdominal pain Shoaib Kinsey Aug 13, 2018 12:26
--- NOTE | 2018-08-13 15:45 | NUR ---
NURSE NOTES: Received order to d/c home. Belongings, and discharge instructions given to patient and pt's . Also given RX for lactulose and given home meds. IV removed prior to d/c. patient requested a Taxi since they don't have transportation to get home. [facility] Taxi voucher given to patient. pt left the floor via w/c with no signs of distress other issues at this time. I will f/u as needed.
--- NOTE | 2018-08-13 15:59 | Diagnostic Imaging Report ---
Indication: Abdominal distention Technique: Supine view of the abdomen Comparison: Hot Shot image from abdomen pelvis CT dated 08/11/2018 Findings: As previously, the stomach is markedly distended with food, configuration unchanged from the prior study. Prominent small bowel loops are seen in the left lower quadrant. Amount of small bowel gas appears somewhat deep from the prior study Again demonstrated are left upper quadrant surgical clips, spinal fusion hardware, and a left hip hemiarthroplasty prosthesis. Impression: Persistent distention of left lower quadrant small bowel, appearing somewhat improved from prior study of 08/11/2018, ongoing small bowel obstruction possible. Distended fluid-filled stomach, not significant change since 08/13/2018. May just indicate recent meal. However, if patient has been nothing by mouth in the interim, this raises concern for gastroparesis. Other findings as noted
--- NOTE | 2018-08-14 10:15 | Discharge Summary ---
Discharge Summary Discharge Summary _ DATE OF ADMISSION: 08/11/2017 DATE OF DISCHARGE: 08/13/2018 DISCHARGED BY: Dr. Simons REASON FOR ADMISSION: 53 years old male with past medical history of cirrhosis, history of weekly paracentesis, presented by paramedics from home with increased lethargy for 1 day. Apparently patient was more confused than at the baseline. Reported abdominal pain , dull , 7 out of 10 , nonradiating. Patient denied alcohol or drug use. Upon evaluation vital signs were stable. Laboratory work-up revealed no leukocytosis, hemoglobin 8.3, hematocrit 23.6 , platelet count 105. Sodium 134. Glucose 99 Lactic acid 2.1. Stable electrolytes. BUN 20, creatinine 1.7. Total bilirubin 1.1, direct bilirubin 0.4. AST 27, ALT 12. Albumin 2.6. proBNP 944 Serum alcohol negative. Serum salicylate and Tylenol negative. Ammonia level 112. Urine toxicology screen was positive for benzodiazepine. Urinalysis revealed no evidence of urinary tract infection.. Chest x-ray revealed no acute cardiopulmonary pathology. CT of the abdomen and pelvis revealed findings consistent with small bowel obstruction probably due to indirect right inguinal hernia. Evidence of hepatic cirrhosis. Evidence of portal hypertension with splenomegaly, varices, mesenteric fat congestion, abdominal wall collaterals and ascites. Evidence of prior ventral hernia repair. Ascitic fluid within the right upper abdominal ventral hernia , just to the right of the midline. Hazy bilateral pulmonary parenchymal ground-glass opacities, possibly reflecting small amount of pulmonary edema Cholelithiasis. In emergency department patient received lactulose and empiric antibiotic. Surgeon was consulted. Patient was admitted to further management. CONSULTANTS: surgery Dr. Kinsey [facility] COURSE: Patient admitted to medical surgical floor. Patient initially was kept n.p.o. Patient was continued on lactulose. Surgeon closely followed. Right inguinal hernia was reducible and can be evaluated as outpatient. Surgeon recommended an elective repair at a later date. Per surgeon, clinically patient was not obstructed. Small bowel obstruction possibly resolved. Surgeon was followed-up patient clinically. Patient slowly started on diet and was able to tolerate diet. Ammonia level trended down, but still elevated. Mental status slowly improved. No nausea, no vomiting. No fever, no chills. Pain management was addressed, and pain was controlled. Surgeon cleared for discharge and recommended follow-up with [facility] for further surgical plan and transplant. Blood cultures were negative. Repeated lactic acid stable. No fever, no leukocytosis. Antibiotics stopped. Renal parameters and electrolytes were closely monitored, electrolytes corrected as needed, nephrotoxins were avoided. Creatinine trended down from initial 1.7 to 1.5. Patient likely had an element of some chronic renal insufficiency. AST AND ALT remained stable. Hemoglobin and hematocrit were closely monitored with goal to keep hemoglobin above 7. Prior to discharge hemoglobin 8.2, hematocrit 25. Patient was on daily diuresis/Lasix and Aldactone with close monitoring of volumes and cardiorenal parameters . Patient was continued on lactulose. Bowel regimen instituted. Supportive care provided. Antiemetic were on board as needed. Patient was continued with Pancrease pills with meals. Patient was able to tolerate diet. Patient clinically stabilized and was ready for discharge home. FINAL DIAGNOSES: Hepatic encephalopathy Probably small bowel obstruction - resolved Indirect right inguinal hernia Cirrhosis Ascites History of alcohol abuse History of laparotomy secondary to small bowel obstruction Renal insufficiency DISCHARGE MEDICATIONS: See Medication Reconciliation list. DISCHARGE INSTRUCTIONS: Patient was discharged home. Follow up with primary care provider in one week. I have been assigned to dictate discharge summary for this account. I was not involved in the patient's management. Justina Nichols NP Aug 14, 2018 10:15
== END 2018-08-13 15:15 | disposition home or self-care (01) | DRG 279 ==
LOC: EDBD 15:55 → EMR 16:10 → 3E 17:35 → EDBEDREQ 18:12
DX: K72.90 Hepatic failure, unspecified without coma (principal); K56.609 Unspecified intestinal obstruction, unspecified as to partial versus complete obstruction; K76.6 Portal hypertension; K40.90 Unilateral inguinal hernia, without obstruction or gangrene, not specified as recurrent; K70.31 Alcoholic cirrhosis of liver with ascites; F10.10 Alcohol abuse, uncomplicated; N28.9 Disorder of kidney and ureter, unspecified; K80.20 Calculus of gallbladder without cholecystitis without obstruction; Z88.6 Allergy status to analgesic agent; Z91.040 Latex allergy status
CPT/HCPCS: 36415; 71045; 74018; 74176; 80053; 80307; 80329; 81003; 82140; 82150; 82248; 83605; 83690; 83880; 85025; 85610; 85651; 85730; 86140; 87040; 96365; 99285; J8499

== ENCOUNTER 2018-09-20 15:34 | Inpatient (IN) | payer OTHER ==
[~2018-09-20] VITALS: Ht 182.9 cm; Wt 83.9 kg
[~2018-09-20 15:34] MED LIST: ALPRAZOLAM ER2 MG ORAL; ALPRAZOLAM0.5 MG PO; CREON DR 6,0001 EACH PO; DOXYCYCLINE HY100 M7 PO; FLOMAX0.4 MG ORAL; FUROSEMIDE40 MG ORAL; LACTULOSE10 GM/153 PO; OXYCODONE HCL10 MG ORAL; OXYCODONE HCL15 M1 ORAL; PROTONIX40 MG ORAL; SPIRONOLACTONE100 MG ORAL; XANAX1 MG ORAL
--- NOTE | 2018-09-20 15:38 | NUR ---
ED Nurse Note: pt brought in to ER by ambulance from home due to chest pain 9/10 on Lt side and not radiating. pt aao x4 and ambulatory with FWW. skin clean and intact. calm and cooperative. at bedside. IV HL made on Rt upper arm, pt on gown, on phototypesetting equipment monitor. calm and cooperative.
--- NOTE | 2018-09-20 15:39 | NUR ---
ED Nurse Note: RUQ and Rt groin hernia noted without open wound or skin irritation.
[2018-09-20 15:40] VITALS: BP 144/84
--- NOTE | 2018-09-20 15:40 | NUR ---
ED Nurse Note: pt has a scar with dry blood on Lt upper eyebrow. per pt, he fell on his face yesterday. pt and denied LOC or AMS. no bleeding at this moment.
[2018-09-20] MEDS ORDERED: Morphine Sulfate 2mg/ml Inj(IV/IM USE ONLY) IVP ONE ×2 (16:00→17:15)
--- NOTE | 2018-09-20 16:00 | Emergency Room Report ---
History of Present Illness General Chief Complaint: Chest Pain Source: Patient, EMS Present Illness HPI Patient is a 53-year-old male who presented after increased left-sided chest discomfort. Patient had prior history of cirrhosis. Patient was brought in by EMS. Chest pain it began approximately 3 hours prior to arrival. Pain was sharp in nature worse with deep breath. Patient had prior history of cirrhosis and is currently taking multiple medications for management of ascites as well as lactulose. Patient states he has been having normal bowel movements he denies any episodes of bleeding. Patient reports having right sided hernia which is not currently symptomatic.Patient was given nitroglycerin by EMS without any change in his chest pain. Allergies: Coded Allergies: LATEX (Unverified Allergy, Unknown, 09/20/18) LATEX, NATURAL RUBBER (Verified Allergy, Unknown, 08/11/18) NSAIDS (NON-STEROIDAL ANTI-INFLAMMA (Verified Allergy, Unknown, 08/11/18) PROMETHAZINE (Unverified Allergy, Unknown, 09/20/18) Uncoded Allergies: NSAIDS (Allergy, Unknown, 09/20/18) Patient History Past Medical History: see triage record Reviewed Nursing Documentation: PMH: Agreed; PSxH: Agreed Nursing Documentation-PMH Hx Cardiac Problems: No Hx Cancer: No Hx Neurological Problems: No Review of Systems All Other Systems: negative except mentioned in HPI Physical Exam Vital Signs Date Time Temp Pulse Resp B/P (MAP) Pulse Ox O2 Delivery O2 Flow Rate FiO2 09/20/18 15:30 98.8 82 16 140/89 (106) 96 Room Air Sp02 EP Interpretation: reviewed, normal General Appearance: no apparent distress, alert, GCS 15, Chronically Ill Eyes: bilateral eye other - left eye old laceration ENT: normal ENT inspection, hearing grossly normal, normal voice Neck: normal inspection, full range of motion, supple, no bony tend Respiratory: normal inspection, lungs clear, normal breath sounds, no respiratory distress, no retraction, no wheezing, other - chest wall tenderness , gynecomastia Cardiovascular #1: regular rate, rhythm, no edema Gastrointestinal: normal bowel sounds, non tender, soft, distended, hernia, other - caput medusa Genitourinary: no CVA tenderness Musculoskeletal: normal inspection, back normal, normal range of motion Neurologic: normal inspection, alert, oriented x3, responsive, speech normal Psychiatric: normal inspection, judgement/insight normal, mood/affect normal Skin: normal color, no rash, laceration - partially healed laceration to left eyelid Medical Decision Making Diagnostic Impression: Primary Impression: Chest pain Additional Impressions: Cirrhosis Hepatic encephalopathy Ventral hernia ER Course Patient presented for chest pain. Differential diagnosis include was not related to pancreatitis, esophagitis, myocardial infarction, chest wall pain among others. Because of complexity of patient's case laboratory testing and imaging studies were ordered. Patient was noted to have a history of cirrhosis and was not given aspirin due to allergy to NSAIDs as well as risk of bleeding. Patient's chest discomfort appears to be localized to the chest wall however work-up was performed to evaluate for possible ACS. EKG interpreted by me showed normal sinus rhythm with a rate of [address] or T wave changes noted.Repeat EKG showed normal sinus rhythm with a rate of [address] or T wave changes and was unchanged from previous.Patient was noted to have some significant chest pain. CT of the chest was ordered due to patient's recent fall. Dr. Pierre Simons was contacted for inpatient management due to prior admission. Labs Test 09/20/18 15:55 White Blood Count 4.9 K/UL (4.8-10.8) Red Blood Count 3.57 M/UL (4.70-6.10) Hemoglobin 9.4 G/DL (14.2-18.0) Hematocrit 27.6 % (42.0-52.0) Mean Corpuscular Volume 77 FL (80-99) Mean Corpuscular Hemoglobin 26.4 PG (27.0-31.0) Mean Corpuscular Hemoglobin Concent 34.1 G/DL (32.0-36.0) Red Cell Distribution Width 14.6 % (11.6-14.8) Platelet Count 100 K/UL (150-450) Mean Platelet Volume 4.6 FL (6.5-10.1) Neutrophils (%) (Auto) 71.9 % (45.0-75.0) Lymphocytes (%) (Auto) 14.3 % (20.0-45.0) Monocytes (%) (Auto) 10.8 % (1.0-10.0) Eosinophils (%) (Auto) 2.2 % (0.0-3.0) Basophils (%) (Auto) 0.7 % (0.0-2.0) Prothrombin Time 13.4 SEC (9.30-11.50) Prothromb Time International Ratio 1.3 (0.9-1.1) Activated Partial Thromboplast Time 29 SEC (23-33) Sodium Level 141 MMOL/L (136-145) Potassium Level 3.5 MMOL/L (3.5-5.1) Chloride Level 107 MMOL/L (98-107) Carbon Dioxide Level 20 MMOL/L (21-32) Anion Gap 14 mmol/L (5-15) Blood Urea Nitrogen 15 mg/dL (7-18) Creatinine 1.3 MG/DL (0.55-1.30) Estimat Glomerular Filtration Rate 57.7 mL/min (>60) Glucose Level 153 MG/DL (74-106) Calcium Level 8.7 MG/DL (8.5-10.1) Total Bilirubin 1.0 MG/DL (0.2-1.0) Aspartate Amino Transf (AST/SGOT) 29 U/L (15-37) Alanine Aminotransferase (ALT/SGPT) 17 U/L (12-78) Alkaline Phosphatase 142 U/L (46-116) Total Creatine Kinase 167 U/L (26-308) Creatine Kinase MB 3.6 NG/ML (0.0-3.6) Creatine Kinase MB Relative Index 2.1 Troponin I 0.002 ng/mL (0.000-0.056) C-Reactive Protein, Quantitative 2.5 mg/dL (0.00-0.90) Total Protein 6.4 G/DL (6.4-8.2) Albumin 2.8 G/DL (3.4-5.0) Globulin 3.6 g/dL Albumin/Globulin Ratio 0.8 (1.0-2.7) Lipase 61 U/L (73-393) Last Vital Signs Date Time Temp Pulse Resp B/P (MAP) Pulse Ox O2 Delivery O2 Flow Rate FiO2 09/20/18 15:30 98.8 82 16 140/89 (106) 96 Room Air Status: improved Disposition: ADMITTED INPATIENT Condition: Stable Farooq Mendez MD September 20, 2018 16:00
[2018-09-20 16:23] LABS: BASOPHILS % (AUTO) 0.7 % (0.0-2.0); EOSINOPHILS % (AUTO) 2.2 % (0.0-3.0); HEMATOCRIT 27.6 % (42.0-52.0); HEMOGLOBIN 9.4 G/DL (14.2-18.0); LYMPHOCYTES % (AUTO) 14.3 % (20.0-45.0); MEAN CORPUSCULAR VOLUME 77 FL (80-99); MONOCYTES % (AUTO) 10.8 % (1.0-10.0); NEUTROPHILS % (AUTO) 71.9 % (45.0-75.0); PLATELET COUNT 100 K/UL (150-450); RED BLOOD COUNT 3.57 M/UL (4.70-6.10); RED CELL DISTRIBUTION WIDTH 14.6 % (11.6-14.8); WHITE BLOOD COUNT 4.9 K/UL (4.8-10.8)
[2018-09-20 16:25] LABS: ANION GAP 14 mmol/L (5-15); BLOOD UREA NITROGEN 15 mg/dL (7-18); CALCIUM 8.7 MG/DL (8.5-10.1); CARBON DIOXIDE 20 MMOL/L (21-32); CHLORIDE 107 MMOL/L (98-107); CREATININE 1.3 MG/DL (0.55-1.30); POTASSIUM 3.5 MMOL/L (3.5-5.1); SODIUM 141 MMOL/L (136-145)
[2018-09-20 16:28] LABS: INR 1.3 (0.9-1.1)
--- NOTE | 2018-09-20 16:34 | Diagnostic Imaging Report ---
Indication: Dyspnea Comparison: 08/11/2018 A single view chest radiograph was obtained. Findings: Cardiomediastinal appearance is within normal limits for age. The lungs are clear. There is breast attenuation artifact at both lung bases. Pulmonary vascularity is appropriate. The diaphragmatic contour is smooth and costophrenic angles are sharp. No pleural effusions are identified. The bones are unremarkable. Impression: No acute findings
[2018-09-20 16:38] LABS: ALANINE AMINOTRANSFERASE 17 U/L (12-78); ALBUMIN 2.8 G/DL (3.4-5.0); ALBUMIN/GLOBULIN RATIO 0.8 (1.0-2.7); ALKALINE PHOSPHATASE 142 U/L (46-116); ASPARTATE AMINO TRANSFERASE 29 U/L (15-37); CKMB 3.6 NG/ML (0.0-3.6); CREATINE KINASE 167 U/L (26-308)
--- NOTE | 2018-09-20 16:47 | NUR ---
ED Nurse Note: ERMD at bedside discussing about the exam results with pt and the .
--- NOTE | 2018-09-20 16:55 | NUR ---
ED Nurse Note: Belonging list done and signed by , Marilin authorized by pt. per pt and , the will take everything home.
[2018-09-20] MEDS ORDERED: Isovue-300 100ml vial INJ PRN (17:00)
--- NOTE | 2018-09-20 17:13 | NUR ---
ED Nurse Note: pt went down to CT scan after signing on consent with fully understanding.
--- NOTE | 2018-09-20 17:28 | NUR ---
ED Nurse Note: came back from CT scan with stable condition.
[2018-09-20 17:40] VITALS: BP 136/76
--- NOTE | 2018-09-20 18:25 | NUR ---
ED Nurse Note: Called for report. nurse has not been assigned at this moment. will call back.
--- NOTE | 2018-09-20 18:36 | NUR ---
ED Nurse Note: Called back and nurse has not been assigned per Deion.
--- NOTE | 2018-09-20 18:47 | NUR ---
ED Nurse Note: Report given to MATY Adams. pt will be transferred after 1900.
--- NOTE | 2018-09-20 19:00 | NUR ---
ED Nurse Note: pt left unit with 1 RN and 1 library circulation technician in stable condition.
[2018-09-20 19:15] VITALS: BP 122/74
--- NOTE | 2018-09-20 19:20 | NUR ---
NURSE NOTES: Received pt from E.R. awake and in no acute distress. Pt tolerating room air. bus monitor placed on pt and vitals taken. Vitals 98.1, 76bpm, 18rpm, 120/72, 100% O2. Pt able to walk from gurney to bed. Oriented pt to room and floor. Bed in lowest position, bed locked, & call light placed within reach. Bed alarm activated. Pt has a old laceration above left eye as well as on lower right leg. Pt's originally was going to take pt belongings home but changed her mind and decided to stay overnight at bedside with all pt belongings at bedside. Contacted Dr. Simons for admission orders.
[2018-09-20] MEDS ORDERED: oxyCODONE 5mg IR tab ORAL PRN (23:00)
[2018-09-21] VITALS: BP 120/65
[2018-09-21 04:00] VITALS: BP 109/66
--- NOTE | 2018-09-21 07:10 | NUR ---
HAND-OFF: Report given to MATY Ramirez. Endorsed plan of care.
--- NOTE | 2018-09-21 07:15 | NUR ---
NURSE NOTES: I received the patient awake and resting in bed. Patient alert and oriented x4. Patient's at the bedside. Patient does not display any signs of distress or SOB. Bed in the lowest position and call light within reach. I will continue to monitor the patient and implement care.
[2018-09-21 08:00] VITALS: BP 135/76
[2018-09-21] MEDS: Spironolactone 50mg tab ORAL SCH (09:13)
[2018-09-21] MEDS: ALPRAZolam 0.5mg tab ORAL SCH ×2 (09:13→17:58)
[2018-09-21] MEDS: Tamsulosin 0.4mg cap ORAL SCH (09:13)
[2018-09-21] MEDS: Furosemide 40mg tab ORAL SCH (09:13)
[2018-09-21] MEDS: Lactulose 20gm/30ml UDC ORAL SCH (09:13)
[2018-09-21] MEDS: Pancrelipase Dr Cap ORAL SCH ×2 (09:14→17:58)
[2018-09-21] MEDS ORDERED: HYDROcodone/Acetamin 10/325 tab ORAL PRN (09:30)
[2018-09-21 12:00] VITALS: BP 124/70
--- NOTE | 2018-09-21 14:39 | NUR ---
CASE MANAGEMENT: INITIAL REVIEW 53 YO BIBA FROM INTERSECTION CC: CP PMHx: NONE STATED SI:CP. CIRRHOSIS. T 98.8 HR 82 RR 16 B/P 140/89 SATS 96% ON RA CO2 20 GLU 153 ALP 142 IS: PEPCID IV X1 MORPHINE IV X1 CXR (-) PATIENT ADMITTED TO [facility] 09/20/2018 @ 3029 DCP: PATIENT TO BE DISCHARGED TO HOME ONCE MEDICALLY CLEARED. PLAN OF CARE: CARDIO EVAL
[2018-09-21 16:00] VITALS: BP 107/69
[2018-09-21] MEDS: oxyCODONE 5mg IR tab ORAL PRN (16:30)
--- NOTE | 2018-09-21 19:44 | NUR ---
NURSE NOTES: Received pt from MATY Ramirez. Patient awake and resting in bed. Patient alert and oriented x4. Patient's at the bedside. Patient does not display any signs of distress or SOB. IV site intact. Bed in the lowest position, locked, and call light within reach. I will continue to monitor the patient and implement care.
--- NOTE | 2018-09-21 19:45 | NUR ---
HAND-OFF: Report given to MATY Becker.
[2018-09-21 20:00] VITALS: BP 122/72
[2018-09-22] VITALS: BP 106/51
[2018-09-22] MEDS: oxyCODONE 5mg IR tab ORAL PRN ×2 (02:26→11:03)
--- NOTE | 2018-09-22 07:28 | NUR ---
HAND-OFF: Report given to MATY Ramirez. Endorsed plan of care.
--- NOTE | 2018-09-22 07:30 | NUR ---
NURSE NOTES: I received the patient awake and sitting at the side of the bed. Patient alert and oriented x4. Patient does not display any signs of distress or SOB. Bed in the lowest position and call light within reach. Patient's at the bedside. I will continue to monitor the patient.
[2018-09-22 08:00] VITALS: BP 142/79
--- NOTE | 2018-09-22 08:35 | Cardiac Electrophysiology PN ---
Subjective Subjective [id number] Objective Last 24 Hour Vital Signs Date Time Temp Pulse Resp B/P (MAP) Pulse Ox O2 Delivery O2 Flow Rate FiO2 09/22/18 04:00 87 09/22/18 04:00 87 09/22/18 00:00 65 09/22/18 00:00 98.2 63 20 106/51 (69) 99 09/21/18 21:00 Room Air 09/21/18 20:00 82 09/21/18 20:00 98.4 82 20 122/72 (89) 98 09/21/18 16:03 83 09/21/18 16:00 98.2 75 20 107/69 (82) 100 09/21/18 12:00 98.8 69 20 124/70 (88) 99 09/21/18 11:32 63 09/21/18 09:00 Room Air Intake and Output 09/21/18 09/22/18 18:59 06:59 Intake Total 280 ml 240 ml Balance 280 ml 240 ml Intake Oral 280 ml 240 ml # Voids 1 Dionicio Vincent MD Sep 22, 2018 08:35
[2018-09-22] MEDS ORDERED: Lexiscan 0.4mg/5ml syringe IV PRN (08:38)
[2018-09-22] MEDS: ALPRAZolam 0.5mg tab ORAL SCH ×2 (08:53→17:52)
[2018-09-22] MEDS: Tamsulosin 0.4mg cap ORAL SCH (08:53)
[2018-09-22] MEDS: Furosemide 40mg tab ORAL SCH (08:54)
[2018-09-22] MEDS: Pancrelipase Dr Cap ORAL SCH ×2 (08:54→17:52)
[2018-09-22] MEDS: Spironolactone 50mg tab ORAL SCH (08:54)
[2018-09-22] MEDS: Lactulose 20gm/30ml UDC ORAL SCH (08:54)
[2018-09-22 12:00] VITALS: BP 139/75
--- NOTE | 2018-09-22 12:00 | Consultation ---
DATE OF CONSULTATION: 09/22/2018 CARDIOLOGY CONSULTATION CONSULTING PHYSICIAN: Dionicio Vincent M.D. REFERRING PHYSICIAN: Pierre Simons M.D. REASON FOR CONSULTATION: Chest pain. HISTORY OF PRESENT ILLNESS: The patient is a 53-year-old man with history of alcoholic cirrhosis, presented to the emergency room with increased left-sided chest discomfort. The patient was brought by paramedics. The chest pain started three hours prior to arrival to the emergency room. The pain was getting worse with deep breathing. The patient has history of cirrhosis and is also on . The patient's EKG shows sinus rhythm with frequent PACs. Cardiology consultation was obtained for further evaluation and management. REVIEW OF SYSTEMS: Negative other than what was mentioned in the history of present illness. PAST MEDICAL HISTORY: As mentioned above. FAMILY HISTORY: Noncontributory. SOCIAL HISTORY: He lives at home. The patient smokes, but has history of alcohol drinking. ALLERGIES: He is allergic to latex, promethazine, and nonsteroidal anti-inflammatory drugs. PHYSICAL EXAMINATION: VITAL SIGNS: Blood pressure is 106/51, pulse 62, respirations 18, and temperature 98.2 HEAD AND NECK: Shows no JVD. LUNGS: Have decreased breath sounds. CARDIOVASCULAR: Shows regular S1 and S2 with no gallop. ABDOMEN: Distended with ascites. EXTREMITIES: 1+ pitting edema. LABORATORY AND DIAGNOSTIC DATA: His EKG shows sinus rhythm with PACs and poor R-wave progression. Labs show white count of 4.9, hemoglobin 9.4, hematocrit 27.6, and platelet count is 100. Sodium is 141, potassium 3.5, BUN of 15, , and glucose of 153. Troponin is negative. INR is 0.3. ASSESSMENT AND PLAN: 1. Chest pain. The EKG showed no acute ischemia. First troponin is negative. We will completely rule out GA protocol, get an echocardiogram for further evaluation. 2. Alcoholic cirrhosis. The patient is on Lasix and Aldactone. Further evaluation by GI. 3. Sinus rhythm with frequent PACs. Thank you very much, Dr. Simons, for allowing me to participate in the care of this patient. Please do not hesitate to contact me for any questions regarding my evaluation. Dionicio Vincent M.D. DR: KAYCEE JOB#: [id number] CC:
--- NOTE | 2018-09-22 12:55 | Consultation ---
History of Present Illness General Date patient seen: Sep 22, 2018 Chief Complaint: Present Illness Allergies: Coded Allergies: LATEX (Unverified Allergy, Unknown, 09/20/18) LATEX, NATURAL RUBBER (Verified Allergy, Unknown, 08/11/18) NSAIDS (NON-STEROIDAL ANTI-INFLAMMA (Verified Allergy, Unknown, 08/11/18) PROMETHAZINE (Unverified Allergy, Unknown, 09/20/18) Uncoded Allergies: NSAIDS (Allergy, Unknown, 09/20/18) Medication History Scheduled Alprazolam* (Xanax*), 1 TAB ORAL BID, (Reported) Furosemide* (Lasix*), 40 MG ORAL DAILY, (Reported) Lactulose (Lactulose), 30 ML PO DAILY, (Reported) Lipase/Protease/Amylase (Creon Dr 6,000 Units Capsule), 3 CAP PO BID, (Reported) Pantoprazole* (Protonix*), 40 MG ORAL DAILY, (Reported) Spironolactone* (Spironolactone*), 100 MG ORAL DAILY, (Reported) Tamsulosin HCl (Flomax), 0.4 MG ORAL DAILY, (Reported) Scheduled PRN Oxycodone Hcl* (Oxycodone Hcl*), 20 MG ORAL TID PRN for For Pain, (Reported) Patient History Healthcare decision maker Resuscitation status Full Code Advanced Directive on File Physical Exam Last 24 Hour Vital Signs Date Time Temp Pulse Resp B/P (MAP) Pulse Ox O2 Delivery O2 Flow Rate FiO2 09/22/18 12:00 98.3 70 20 139/75 (96) 97 09/22/18 09:00 Room Air 09/22/18 08:00 98.1 88 20 142/79 (100) 98 09/22/18 07:53 82 09/22/18 04:00 87 09/22/18 04:00 87 09/22/18 00:00 65 09/22/18 00:00 98.2 63 20 106/51 (69) 99 09/21/18 21:00 Room Air 09/21/18 20:00 82 09/21/18 20:00 98.4 82 20 122/72 (89) 98 09/21/18 16:03 83 09/21/18 16:00 98.2 75 20 107/69 (82) 100 Intake and Output 09/21/18 09/22/18 18:59 06:59 Intake Total 280 ml 240 ml Balance 280 ml 240 ml Intake Oral 280 ml 240 ml # Voids 1 Laboratory Tests Test 09/22/18 10:45 Troponin I 0.014 ng/mL (0.000-0.056) Height (Feet): 6 Height (Inches): 6.00 Weight (Pounds): 185 Medications Current Medications Medications (Trade) Dose Ordered Sig/Kaycee Route PRN Reason Start Time Stop Time Status Last Admin Dose Admin Alprazolam (Xanax) 1 mg BID ORAL 09/21/18 09:00 09/28/18 08:59 09/22/18 08:53 Amylase/Lipase/ Protease (Zenpep) 3 ea BID ORAL 09/21/18 09:00 10/21/18 08:59 09/22/18 08:54 Furosemide (Lasix) 40 mg DAILY ORAL 09/21/18 09:00 10/21/18 08:59 09/22/18 08:54 Iopamidol (Isovue-300 100ml) 100 ml NOW PRN INJ Radiology Procedure 09/20/18 17:00 09/22/18 16:56 Lactulose (Cephulac) 20 gm DAILY ORAL 09/21/18 09:00 10/21/18 08:59 09/22/18 08:54 Oxycodone HCl (Roxicodone) 20 mg TID PRN ORAL pain 1-5 09/21/18 09:45 09/27/18 22:59 09/22/18 11:03 Pantoprazole (Protonix) 40 mg DAILY ORAL 09/21/18 09:00 10/21/18 08:59 09/22/18 08:54 Regadenoson (Lexiscan) 0.4 mg ONCE PRN IV CARDIOLOGY 09/22/18 08:38 09/23/18 23:59 Spironolactone (Aldactone) 100 mg DAILY ORAL 09/21/18 09:00 10/21/18 08:59 09/22/18 08:54 Tamsulosin HCl (Flomax) 0.4 mg DAILY ORAL 09/21/18 09:00 10/21/18 08:59 09/22/18 08:53 Assessment/Plan Assessment/Plan: (1) Abdominal pain (2) Liver Cirrhosis (3) Lumbar DDD (4) Lumbar Spondylosis (5) H/O Lumbar surgery seen dictated Daniel Vogel Sep 22, 2018 12:55
[2018-09-22] MEDS ORDERED: Naloxone 0.4mg/ml Inj IV PRN (13:00)
[2018-09-22] MEDS: Morphine Sulfate 4mg/ml Inj (IV USE ONLY) IVP PRN ×3 (14:19→23:43)
--- NOTE | 2018-09-22 16:45 | Progress Note ---
DATE: 09/22/2018 SUBJECTIVE: The patient is a 53-year-old male, currently awake, comfortable. Abdominal pain is resolved. Chest pain is also resolved. OBJECTIVE: CHEST: Bilaterally clear. CARDIOVASCULAR: Regular rhythm. ABDOMEN: Soft. EXTREMITIES: CCE. ASSESSMENT: 1. Acute coronary syndrome. 2. Cirrhosis. 3. Ascites. PLAN: We will currently continue current treatment. Continue lactulose, aspirin. Cardiology is on the case. Kristofer Simons M.D. DR: ORAL JOB#: [id number] CC:
[2018-09-22] MEDS ORDERED: Lactulose 20gm/30ml UDC ORAL SCH (18:00)
--- NOTE | 2018-09-22 19:20 | NUR ---
NURSE NOTES: Received pt from MATY Ramirez. Pt is awake and resting in bed, at bedside. IV site intact. Call light within reach, bed locked and in lowest position. Will continue with plan of care.
--- NOTE | 2018-09-22 19:21 | NUR ---
HAND-OFF: Report given to Liset Baez RN.
--- NOTE | 2018-09-22 20:45 | Consultation ---
DATE OF CONSULTATION: 09/22/2018 PAIN MANAGEMENT CONSULTATION CONSULTING PHYSICIAN: Jhonatan Alex M.D. REFERRING PHYSICIAN: Kristofer Simons M.D. PHYSICIAN CLEARING HAND: Altaf Pastrana CHIEF COMPLAINT: Abdominal pain and low back pain. HISTORY OF PRESENT ILLNESS: This is a 53-year-old male, who is being seen on the telemetry floor of [facility]. The patient was admitted under the care of Dr. Simons with complaints of abdominal pain and low back pain, reporting that he has been having low back pain since 1991. It is constant chronic pain, rating it 10/10, describing the pain as sharp pain, radiating down to bilateral lower extremities, increased with movement. Nothing has been helping to relieve his pain. History of lumbar surgery. At this time, a friend is at bedside, showing no signs of pain or distress. As an outpatient, the patient is receiving oxycodone 10 mg twice a day. Here in the hospital, started on oxycodone 10 mg p.o. twice a day as per the retention specialist. Due to this, we were consulted so the patient would have adequate pain control while in the hospital. The patient has history of liver cirrhosis and has severe ascites, causing increased agitation and pain. PAST MEDICAL HISTORY: Cirrhosis, avascular necrosis, inguinal hernia. PAST SURGICAL HISTORY: Low back surgery, hip surgery, abdominal surgery. SOCIAL HISTORY: He is a smoker. History of alcohol abuse. Denies IV drug abuse. ALLERGIES: Latex, NSAID, Reglan, and Phenergan. MEDICATIONS: Xanax, Lasix, lactulose, Protonix, spironolactone, Flomax, oxycodone. REVIEW OF SYSTEMS: Denies rash, fever, chills, sweating, dizziness, drowsiness, blurred vision, sore throat, or change in weight. No nausea, vomiting, diarrhea, or blood in the stool or urine. No bowel or bladder incontinence. No dysuria. He is complaining of abdominal pain and low back pain. PHYSICAL EXAMINATION: GENERAL: Alert, awake, oriented. VITAL SIGNS: Blood pressure 139/75, heart rate 79, oxygen saturation 97%, respiratory rate 20, and temperature 98.3 degrees Fahrenheit. HEENT: PERRLA. NECK: Range of motion is full in all directions. No tenderness to paracervical muscles. No adenopathy. LUNGS: Decreased breath sounds bilaterally. HEART: S1 and S2 regular. ABDOMEN: Distended with tenderness to palpation. BACK: Range of motion is decreased in flexion and extension with surgical scar noted in midline of lumbar spine. EXTREMITIES: Upper and lower extremity range of motion is decreased due to the patient's condition. No cyanosis. No clubbing. Sensory is reduced. Reflexes are not obtainable. No adenopathy. ASSESSMENT AND PLAN: This is a 53-year-old male with abdominal pain, liver cirrhosis, lumbar degenerative disk disease, lumbar spondylosis, history of lumbar surgery. The patient will be discontinued on the oxycodone, started on morphine 4 mg IV every 4 hours as needed for severe pain. The patient was discussed with Dr. Alex and Dr. Alex concurred. We will follow the patient. Thank you very much for the courtesy of this consultation. Jhonatan Alex M.D. MATTHEW Pastrana DR: Venessa JOB#: [id number] CC: DELFIN
[2018-09-23 03:05] LABS: HEMATOCRIT 25.9 % (42.0-52.0); HEMOGLOBIN 9.1 G/DL (14.2-18.0); MEAN CORPUSCULAR VOLUME 78 FL (80-99); PLATELET COUNT 92 K/UL (150-450); RED BLOOD COUNT 3.33 M/UL (4.70-6.10); WHITE BLOOD COUNT 4.3 K/UL (4.8-10.8)
[2018-09-23 03:29] LABS: ANION GAP 8 mmol/L (5-15); BLOOD UREA NITROGEN 9 mg/dL (7-18); CALCIUM 8.5 MG/DL (8.5-10.1); CARBON DIOXIDE 25 MMOL/L (21-32); CHLORIDE 102 MMOL/L (98-107); POTASSIUM 4.5 MMOL/L (3.5-5.1); SODIUM 135 MMOL/L (136-145)
[2018-09-23 04:00] VITALS: BP 128/72
[2018-09-23] MEDS: Morphine Sulfate 4mg/ml Inj (IV USE ONLY) IVP PRN ×3 (04:25→13:44)
--- NOTE | 2018-09-23 07:05 | NUR ---
HAND-OFF: Report given to MATY Ramirez. Endorsed plan of care.
[2018-09-23 08:00] VITALS: BP 130/69
[2018-09-23 08:01] VITALS: BP 128/72
--- NOTE | 2018-09-23 08:51 | General Progress Note ---
Assessment/Plan Assessment/Plan: (1) Abdominal pain (2) Liver Cirrhosis (3) Lumbar DDD (4) Lumbar Spondylosis (5) H/O Lumbar surgery Pt will be continued on Morphine D/w Dr. Alex and he concurred. Subjective Date patient seen: Sep 23, 2018 Time patient seen: 08:15 - am Constitutional: Reports: weakness HEENT: Reports: no symptoms Cardiovascular: Reports: no symptoms Respiratory: Reports: no symptoms Gastrointestinal/Abdominal: Reports: abdomen distended Genitourinary: Reports: no symptoms Neurologic/Psychiatric: Reports: weakness Endocrine: Reports: no symptoms Hematologic/Lymphatic: Reports: no symptoms Allergies: Coded Allergies: LATEX (Unverified Allergy, Unknown, 09/20/18) LATEX, NATURAL RUBBER (Verified Allergy, Unknown, 08/11/18) NSAIDS (NON-STEROIDAL ANTI-INFLAMMA (Verified Allergy, Unknown, 08/11/18) PROMETHAZINE (Unverified Allergy, Unknown, 09/20/18) Uncoded Allergies: NSAIDS (Allergy, Unknown, 09/20/18) Subjective Patient is in bed and reports pain is tolerated on the Morphine No new complaints at this time. Objective Last 24 Hour Vital Signs Date Time Temp Pulse Resp B/P (MAP) Pulse Ox O2 Delivery O2 Flow Rate FiO2 09/23/18 08:01 98.8 71 20 128/72 (90) 98 09/23/18 08:00 98.8 67 20 130/69 (89) 98 09/23/18 04:00 98.2 67 17 128/72 (90) 98 09/23/18 04:00 67 09/23/18 00:00 71 09/23/18 00:00 71 09/22/18 21:00 Room Air 09/22/18 20:00 67 09/22/18 20:00 67 09/22/18 19:05 98.3 09/22/18 15:28 64 09/22/18 12:00 98.3 70 20 139/75 (96) 97 09/22/18 12:00 76 09/22/18 09:00 Room Air Intake and Output 09/22/18 09/23/18 19:00 07:00 Intake Total 390 ml Balance 390 ml Intake Oral 390 ml # Voids 4 2 Laboratory Tests 09/22/18 10:45: Troponin I 0.014 09/22/18 19:05: Troponin I 0.009 09/23/18 02:45: Troponin I 0.004, White Blood Count 4.3L, Red Blood Count 3.33L, Hemoglobin 9.1L , Hematocrit 25.9L, Mean Corpuscular Volume 78L, Mean Corpuscular Hemoglobin 27.3, Mean Corpuscular Hemoglobin Concent 35.1, Red Cell Distribution Width 15.0H, Platelet Count 92L, Mean Platelet Volume 5.0L, Neutrophils (%) (Auto) , Lymphocytes (%) (Auto) , Monocytes (%) (Auto) , Eosinophils (%) (Auto) , Basophils (%) (Auto) , Sodium Level 135L, Potassium Level 4.5, Chloride Level 102, Carbon Dioxide Level 25, Anion Gap 8, Blood Urea Nitrogen 9, Creatinine 1.0 , Estimat Glomerular Filtration Rate > 60, Glucose Level 117H, Calcium Level 8.5 , Pro-B-Type Natriuretic Peptide 42 Height (Feet): 6 Height (Inches): 6.00 Weight (Pounds): 185 General Appearance: no apparent distress, alert EENT: PERRL/EOMI, normal ENT inspection Neck: non-tender, normal alignment Cardiovascular: normal rate, regular rhythm Respiratory/Chest: decreased breath sounds Abdomen: distended Extremities: non-tender Edema: mild edema Neurologic: alert, oriented x 3 Skin: warm/dry Daniel Vogel Sep 23, 2018 08:51
[2018-09-23] MEDS: Furosemide 40mg tab ORAL SCH (09:13)
[2018-09-23] MEDS: ALPRAZolam 0.5mg tab ORAL SCH ×2 (09:14→17:54)
[2018-09-23] MEDS: Lactulose 20gm/30ml UDC ORAL SCH ×3 (09:14→17:54)
[2018-09-23] MEDS: Tamsulosin 0.4mg cap ORAL SCH (09:14)
[2018-09-23] MEDS: Pancrelipase Dr Cap ORAL SCH ×2 (09:14→17:54)
[2018-09-23] MEDS: Spironolactone 50mg tab ORAL SCH (09:14)
--- NOTE | 2018-09-23 10:14 | Diagnostic Imaging Report ---
EXAM: CT Chest With Intravenous Contrast CLINICAL HISTORY: PAIN TECHNIQUE: Axial computed tomography images of the chest with intravenous contrast. CTDI is 40.5 mGy and DLP is 984 mGy-cm. One or more of the following dose reduction techniques were used: automated exposure control, adjustment of the mA and/or kV according to patient size, use of iterative reconstruction technique. COMPARISON: Chest x-ray 09/20/2018. CT abdomen-pelvis 08/11/2018 FINDINGS: Lungs: No evidence of acute pulmonary parenchymal disease or pulmonary consolidation. Pleural space: No evidence of pleural effusion or pneumothorax. Heart: Heart size is within normal limits. No evidence of pericardial effusion. Bones/joints: Mild thoracic spondylosis. No acute bony abnormalities. Soft tissues: Prominent bilateral gynecomastia. Vasculature: No thoracic aortic aneurysm or evidence of dissection. Lymph nodes: No evidence of lymphadenopathy. Hepatic morphology compatible with cirrhosis. Prominent abdominal ascites in the imaged upper abdomen. Cholelithiasis with calcified gallstones. Ovoid focal fluid collection along the right upper anterior abdominal wall as was also evident on prior CT abdomen of 08/11/2018. IMPRESSION: No evidence of active chest disease. Prominent bilateral gynecomastia. Upper abdominal findings as described in body of report with similar findings noted on prior CT abdomen of 08/11/2018.
--- NOTE | 2018-09-23 11:14 | Cardiac Electrophysiology PN ---
Assessment/Plan Assessment/Plan 1. Chest pain. The EKG showed no acute ischemia. Ruled out for SD. Echo EF 55%. Nuclear stress test pending today 2. Alcoholic cirrhosis. On Lasix 40 and Aldactone 100. Further evaluation by GI. 3. Sinus rhythm with frequent PACs. Subjective Subjective Comfortable in NAD. Scheduled for nuclear stress test today. No arrhythmias overnight Objective Last 24 Hour Vital Signs Date Time Temp Pulse Resp B/P (MAP) Pulse Ox O2 Delivery O2 Flow Rate FiO2 09/23/18 09:45 98.8 09/23/18 09:00 Room Air 09/23/18 08:01 98.8 71 20 128/72 (90) 98 09/23/18 08:00 98.8 67 20 130/69 (89) 98 09/23/18 07:52 70 09/23/18 04:00 98.2 67 17 128/72 (90) 98 09/23/18 04:00 67 09/23/18 00:00 71 09/23/18 00:00 71 09/22/18 21:00 Room Air 09/22/18 20:00 67 09/22/18 20:00 67 09/22/18 15:28 64 09/22/18 12:00 98.3 70 20 139/75 (96) 97 09/22/18 12:00 76 Intake and Output 09/22/18 09/23/18 18:59 06:59 Intake Total 390 ml Balance 390 ml Intake Oral 390 ml # Voids 4 2 Laboratory Tests Test 09/22/18 19:05 09/23/18 02:45 Troponin I 0.009 ng/mL (0.000-0.056) 0.004 ng/mL (0.000-0.056) White Blood Count 4.3 K/UL (4.8-10.8) L Red Blood Count 3.33 M/UL (4.70-6.10) L Hemoglobin 9.1 G/DL (14.2-18.0) L Hematocrit 25.9 % (42.0-52.0) L Mean Corpuscular Volume 78 FL (80-99) L Mean Corpuscular Hemoglobin 27.3 PG (27.0-31.0) Mean Corpuscular Hemoglobin Concent 35.1 G/DL (32.0-36.0) Red Cell Distribution Width 15.0 % (11.6-14.8) H Platelet Count 92 K/UL (150-450) L Mean Platelet Volume 5.0 FL (6.5-10.1) L Neutrophils (%) (Auto) % (45.0-75.0) Lymphocytes (%) (Auto) % (20.0-45.0) Monocytes (%) (Auto) % (1.0-10.0) Eosinophils (%) (Auto) % (0.0-3.0) Basophils (%) (Auto) % (0.0-2.0) Sodium Level 135 MMOL/L (136-145) L Potassium Level 4.5 MMOL/L (3.5-5.1) Chloride Level 102 MMOL/L (98-107) Carbon Dioxide Level 25 MMOL/L (21-32) Anion Gap 8 mmol/L (5-15) Blood Urea Nitrogen 9 mg/dL (7-18) Creatinine 1.0 MG/DL (0.55-1.30) Estimat Glomerular Filtration Rate > 60 mL/min (>60) Glucose Level 117 MG/DL (74-106) H Calcium Level 8.5 MG/DL (8.5-10.1) Pro-B-Type Natriuretic Peptide 42 pg/mL (0-125) Objective HEAD AND NECK: No JVD. LUNGS: Have decreased breath sounds. CARDIOVASCULAR: Regular S1 and S2 with no gallop. ABDOMEN: Distended with ascites. EXTREMITIES: 1+ pitting edema. Dionicio Vincent MD Sep 23, 2018 11:14
[2018-09-23 12:00] VITALS: BP 128/62
--- NOTE | 2018-09-23 13:14 | NUR ---
*-* NO INSURANCE INFORMATION IN THE BAR UNABLE TO SEND CLINICALS OR REVIEWS *-*
[2018-09-23 16:00] VITALS: BP 132/86
--- NOTE | 2018-09-23 17:00 | Diagnostic Imaging Report ---
Indication: chest pain Technique: The study was conducted under the supervision of a metallurgist helper. lexiscan (regadenoson) infusion over 10 seconds followed by intravenous administration of 32 mCi of technetium 99m Myoview was performed. Three plane SPECT imaging of the heart was then performed. A resting study was performed as part of the one-day protocol with 9.7 mCi of technetium 99m myoview injected intravenously at that time. Three plane SPECT imaging of the heart was obtained. Comparison: None Clinical data: 1. Clinical response: Non ischemic 2. Electrocardiographic response: Non ischemic Findings: The myocardial perfusion scan demonstrates no definite fixed or reversible perfusion defects. LVEF estimated at 70%. IMPRESSION: Negative myocardial perfusion
--- NOTE | 2018-09-23 17:28 | Consultation ---
History of Present Illness General Date patient seen: Sep 23, 2018 Chief Complaint: Chest Pain Present Illness Allergies: Coded Allergies: LATEX (Unverified Allergy, Unknown, 09/20/18) LATEX, NATURAL RUBBER (Verified Allergy, Unknown, 08/11/18) NSAIDS (NON-STEROIDAL ANTI-INFLAMMA (Verified Allergy, Unknown, 08/11/18) PROMETHAZINE (Unverified Allergy, Unknown, 09/20/18) Uncoded Allergies: NSAIDS (Allergy, Unknown, 09/20/18) Medication History Scheduled Alprazolam* (Xanax*), 1 TAB ORAL BID, (Reported) Furosemide* (Lasix*), 40 MG ORAL DAILY, (Reported) Lactulose (Lactulose), 30 ML PO DAILY, (Reported) Lipase/Protease/Amylase (Creon Dr 6,000 Units Capsule), 3 CAP PO BID, (Reported) Pantoprazole* (Protonix*), 40 MG ORAL DAILY, (Reported) Spironolactone* (Spironolactone*), 100 MG ORAL DAILY, (Reported) Tamsulosin HCl (Flomax), 0.4 MG ORAL DAILY, (Reported) Scheduled PRN Oxycodone Hcl* (Oxycodone Hcl*), 20 MG ORAL TID PRN for For Pain, (Reported) Patient History Healthcare decision maker Resuscitation status Full Code Advanced Directive on File Physical Exam Last 24 Hour Vital Signs Date Time Temp Pulse Resp B/P (MAP) Pulse Ox O2 Delivery O2 Flow Rate FiO2 09/23/18 16:00 97.9 86 20 132/86 (101) 100 09/23/18 14:14 98.0 09/23/18 12:00 98.0 79 20 128/62 (84) 97 09/23/18 12:00 76 09/23/18 09:00 Room Air 09/23/18 08:01 98.8 71 20 128/72 (90) 98 09/23/18 08:00 98.8 67 20 130/69 (89) 98 09/23/18 07:52 70 09/23/18 04:00 98.2 67 17 128/72 (90) 98 09/23/18 04:00 67 09/23/18 00:00 71 09/23/18 00:00 71 09/22/18 21:00 Room Air 09/22/18 20:00 67 09/22/18 20:00 67 Intake and Output 09/22/18 09/23/18 19:00 07:00 Intake Total 390 ml Balance 390 ml Intake Oral 390 ml # Voids 4 2 Laboratory Tests Test 09/22/18 19:05 09/23/18 02:45 Troponin I 0.009 ng/mL (0.000-0.056) 0.004 ng/mL (0.000-0.056) White Blood Count 4.3 K/UL (4.8-10.8) L Red Blood Count 3.33 M/UL (4.70-6.10) L Hemoglobin 9.1 G/DL (14.2-18.0) L Hematocrit 25.9 % (42.0-52.0) L Mean Corpuscular Volume 78 FL (80-99) L Mean Corpuscular Hemoglobin 27.3 PG (27.0-31.0) Mean Corpuscular Hemoglobin Concent 35.1 G/DL (32.0-36.0) Red Cell Distribution Width 15.0 % (11.6-14.8) H Platelet Count 92 K/UL (150-450) L Mean Platelet Volume 5.0 FL (6.5-10.1) L Neutrophils (%) (Auto) % (45.0-75.0) Lymphocytes (%) (Auto) % (20.0-45.0) Monocytes (%) (Auto) % (1.0-10.0) Eosinophils (%) (Auto) % (0.0-3.0) Basophils (%) (Auto) % (0.0-2.0) Sodium Level 135 MMOL/L (136-145) L Potassium Level 4.5 MMOL/L (3.5-5.1) Chloride Level 102 MMOL/L (98-107) Carbon Dioxide Level 25 MMOL/L (21-32) Anion Gap 8 mmol/L (5-15) Blood Urea Nitrogen 9 mg/dL (7-18) Creatinine 1.0 MG/DL (0.55-1.30) Estimat Glomerular Filtration Rate > 60 mL/min (>60) Glucose Level 117 MG/DL (74-106) H Calcium Level 8.5 MG/DL (8.5-10.1) Pro-B-Type Natriuretic Peptide 42 pg/mL (0-125) Height (Feet): 6 Height (Inches): 6.00 Weight (Pounds): 185 Medications Current Medications Medications (Trade) Dose Ordered Sig/Kaycee Route PRN Reason Start Time Stop Time Status Last Admin Dose Admin Alprazolam (Xanax) 1 mg BID ORAL 09/21/18 09:00 09/28/18 08:59 09/23/18 09:14 Amylase/Lipase/ Protease (Zenpep) 3 ea BID ORAL 09/21/18 09:00 10/21/18 08:59 09/23/18 09:14 Furosemide (Lasix) 40 mg DAILY ORAL 09/21/18 09:00 10/21/18 08:59 09/23/18 09:13 Lactulose (Cephulac) 20 gm TID ORAL 09/23/18 09:00 10/21/18 08:59 09/23/18 13:44 Morphine Sulfate (Morphine Sulfate) 4 mg Q4H PRN IVP Severe Pain (Pain Scale 7-10) 09/22/18 13:00 09/29/18 12:59 09/23/18 13:44 Naloxone HCl (Narcan) 0.2 mg Q2M PRN IV RESPRITORY DISTRESS, RR<8 09/22/18 13:00 10/22/18 12:59 Pantoprazole (Protonix) 40 mg DAILY ORAL 09/21/18 09:00 10/21/18 08:59 09/23/18 09:14 Regadenoson (Lexiscan) 0.4 mg ONCE PRN IV CARDIOLOGY 09/22/18 08:38 09/23/18 23:59 Spironolactone (Aldactone) 100 mg DAILY ORAL 09/21/18 09:00 10/21/18 08:59 09/23/18 09:14 Tamsulosin HCl (Flomax) 0.4 mg DAILY ORAL 09/21/18 09:00 10/21/18 08:59 09/23/18 09:14 Assessment/Plan Assessment/Plan: HEMATOLOGY/ONCOLOGY CONSULTATION DATE OF CONSULTATION: 09/23/2018 REFERRING PHYSICIAN: Simons Rajendra REASON FOR CONSULT: Pancytopenia, anemia HISTORY OF PRESENT ILLNESS: This is a 53-year-old male, who is being seen on the telemetry floor of [facility] [place]. The patient was admitted under the care of Dr. Simons with complaints of abdominal pain and low back pain, reporting that he has been having low back pain since 1991. It is constant chronic pain, rating it 10/10, describing the pain as sharp pain, radiating down to bilateral lower extremities, increased with movement. Nothing has been helping to relieve his pain. History of lumbar surgery. The patient has history of liver cirrhosis and has severe ascites, causing increased agitation and pain. Upon review of CBC, pt was found to have low levels of wbc, hgb, and plt. Hematology services have been consulted for the evaluation of pancytopenia and anemia. PAST MEDICAL HISTORY: Cirrhosis, avascular necrosis, inguinal hernia. PAST SURGICAL HISTORY: Low back surgery, hip surgery, abdominal surgery. SOCIAL HISTORY: He is a smoker. History of alcohol abuse. Denies IV drug abuse. ALLERGIES: Latex, NSAID, Reglan, and Phenergan. MEDICATIONS: Xanax, Lasix, lactulose, Protonix, spironolactone, Flomax, oxycodone. ROS: Constitutional: No fever, no chills, no night sweats, no fatigue Skin: No rashes, lumps, itchiness, dryness HEENT: No STROUD, ear ache, visual changes, double vision, nosebleeds Breasts: No lumps, pain, discharge Pulmonary: No cough, sputum, shortness of breath, coughing up blood Cardiovascular: No chest pain, tightness, palpitations, syncope, PND GI: No nausea, vomiting, diarrhea, melena, hematochezia, change in appetite, : No dysuria, frequency, urgency, urinary incontinence, foamy urine Musculoskeletal: No joint swelling or muscle pain, trauma. ABD AND LOW BACK PAIN ++ Neurologic: No dizziness, fainting, seizures, changes in smell or taste Psychiatric: No nervousness, stress, or depression, anxiety, hallucinations Endocrine: No weight change, heat or cold intolerance, tremor, insomnia PHYSICAL EXAMINATION: GENERAL: Alert, awake, oriented. VITAL SIGNS: Have been reviewed HEENT: PERRLA. NECK: Range of motion is full in all directions. No tenderness to paracervical muscles. No adenopathy. LUNGS: Decreased breath sounds bilaterally. HEART: S1 and S2 regular. ABDOMEN: Distended with tenderness to palpation. BACK: Range of motion is decreased in flexion and extension with surgical scar noted in midline of lumbar spine. EXTREMITIES: Upper and lower extremity range of motion is decreased due to the patient's condition. No cyanosis. No clubbing. Sensory is reduced. Reflexes are not obtainable. No adenopathy. LABS: wbc 4.3 hgb 9.1 plt 92k ASSESSMENT AND PLAN: # Pancytopenia -- likely related to underlying liver disease, h/o alcohol cirrhosis --> peripheral smear has been ordered and does not show significant abnormalities --> Medications have been reviewed --> Continue to monitor for improvement, trend cbc --> Hep panel and HIV have been ordered --> Positive h/o cirrhosis --> consider other causes, infections that could contribute --> reverse isolation if ANC is <2000 --> Give neupogen if ANC <1000 --> Transfuse if hgb <7, with 1 unit prbc --> consider bone marrow biopsy if no other causes are found # Anemia of chronic disease (or of iron deficiency) due to underlying chronic medical issues, multifactorial --> Anemia workup has been ordered, rule out gi bleed --> No evidence of hemolysis is noted, peripheral smear has been reviewed. --> Hgb goal >7. Transfuse prn. --> Epogen or iron at this time is not particularly indicated --> Medications have been reviewed --> low threshold for gi evaluation in case has occult + --> bone marrow biopsy is not indicated given the other more likely causes # Chest pain. Cardiology is following, appreciate recs --> EKG showed no acute ischemia. First troponin is negative. --> Ruled out for MS. Echo EF 55%. Nuclear stress test pending today # Alcoholic cirrhosis. GI is following, appreciate recs. --> The patient is on Lasix and Aldactone. # Sinus rhythm with frequent PACs. The time note is entered does not reflect the time the patient was examined. GREATLY APPRECIATE CONSULTATION. Bebo Mena MD Sep 23, 2018 17:28
--- NOTE | 2018-09-23 17:32 | Diagnostic Imaging Report ---
APPROVED REPORT CPT Code: 47430 Vascular Symptoms Comments: Chest pain Fall Doppler Spectral Velocity Analysis RightLeft RIGHT SIDE: CCA - Imaging reveals no significant plaque within the extracranial carotid arteries. The Doppler spectral flow analysis is within normal limits throughout the extracranial carotid arteries. VERTEBRAL/SUBCLAVIAN- The vertebral artery and subclavian artery are patent, without evidence of stenosis or steal. LEFT SIDE: BULB- Imaging reveals irregular, minimal plaque in the carotid bulb and internal and external carotid arteries. VERTEBRAL/SUBCLAVIAN- The vertebral artery and subclavian artery are patent, without evidence of stenosis or steal.
--- NOTE | 2018-09-23 18:13 | NUR ---
NURSE NOTES: The patient was discharged in stable condition. Patient's IV removed and tele monitor removed. Patient signed his belongings sheet and confirmed he did not have any belongings listed. Patient's was provided with discharge instructions and taxi voucher upon discharge. patient's was with the patient upon discharge. Patient and ambulated to the lobby without incident. Patient's ID band removed. Patient did not display any signs of distress or SOB.
[2018-09-23] MEDS ORDERED: Tubing IV Secondary IV ONE (18:14)
[2018-09-23] MEDS ORDERED: NS 275ml ONE (18:14)
--- NOTE | 2018-09-24 10:27 | NUR ---
*-* INSURANCE *-* ALL CLINICALS AND REVIEWS HAVE BEEN FAXED TO: [facility] SVETLANA:FRANDY F:[phone]
--- NOTE | 2018-09-24 11:20 | Discharge Summary ---
Discharge Summary Discharge Summary _ DATE OF ADMISSION: 09/20/2018 DATE OF DISCHARGE: 09/23/2018 DISCHARGED BY: Dr. Simons REASON FOR ADMISSION: 53 years old male with past medical history of liver cirrhosis, hypertension, alcohol and substance abuse, presented to emergency department with left-sided chest discomfort. Chest pain started 3 hours prior to arrival and described as sharp and worse with deep breathing. Paramedics provided patient with nitroglycerin without any change with chest discomfort. Patient on multiple medication for management of ascites . Patient reported normal bowel movements . He denied hematochezia, melena or bright red blood per rectum. Patient reported right-sided hernia, not symptomatic currently. Upon evaluation vital signs were stable Laboratory work-up revealed no leukocytosis, hemoglobin 9.4, hematocrit 27.6. INR 1.3. Troponin negative. Stable electrolytes and renal parameters. Stable LFT. Albumin 2.8. Chest x-ray demonstrated no acute cardiopulmonary pathology. CT of the chest revealed no evidence of active chest disease. Prominent bilateral gynecomastia noted. Patient subsequently admitted to telemetry floor. CONSULTANTS: wool buyer Dr. Delgado pain specialist Dr. Alex senior it auditor/oncologist Dr. Mena [facility]SE: Patient admitted to telemetry floor. Shirt Presser followed. Serial troponin were negative. EKG revealed no acute ischemic changes. Patient was ruled out for acute MT. Echocardiogram revealed ejection fraction of 55% with no evidence of wall motion abnormality. Mild left ventricular hypertrophy noted. Right ventricular systolic pressure of 39 consistent with mild pulmonary hypertension. Reduced left ventricular relaxation consistent with impaired diastolic dysfunction noted. Patient subsequently undergone myocardial perfusion nuclear stress test , which was nonischemic with calculated left ventricular ejection fraction of 70%. Carotid duplex review was essentially negative. Telemetry continued to show sinus rhythm with frequent PAC. Blood pressure remained stable. Patient was continued on diuretics for ascites with close monitoring of volumes and renal parameters. Electrolytes were closely monitored and remained stable. Patient was continued with lactulose and Zantac. Pain management provided as per pain specialist recommendation. Hemoglobin and hematocrit were closely monitored with goal to keep hemoglobin above 7 prior to discharge hemoglobin 9.1 hematocrit 25.9. Platelet count 92. WBC 4.3. Patient with evidence of anemia of chronic disease, likely due to underlying chronic medical issues. No evidence of hemolysis noted. Per senior it auditor, Epogen or iron were not particularly indicated at this case. . Pancytopenia was likely secondary to liver cirrhosis. Patient will need close monitoring of counts as outpatient. Chest pain resolved. Pulse oximetry stable on room air. Cardiac work-up was negative. Patient was counseled on abstinence from alcohol and illegal street drugs. Patient was stable for discharge. FINAL DIAGNOSES: Chest pain Alcoholic cirrhosis Lumbar DDD Lumbar spondylosis History of lumbar surgery Pancytopenia Anemia of chronic disease DISCHARGE MEDICATIONS: See Medication Reconciliation list. DISCHARGE INSTRUCTIONS: Patient was discharged home . Follow up with primary care provider in one week. I have been assigned to dictate discharge summary for this account. I was not involved in the patient's management. Justina Nichols NP Sep 24, 2018 11:20
--- NOTE | 2018-09-25 11:18 | NUR ---
*-* INSURANCE *-* DISCAHRGE SUMMARY HAVE BEEN FAXED TO: [facility] TIAGO:FRANDY F:[phone]
--- NOTE | 2018-09-25 13:36 | Cardiology Report ---
APPROVED REPORT EXAM: Two-dimensional and M-mode echocardiogram with Doppler and color Doppler. INDICATION Chest Pain M-Mode DIMENSIONS IVSd1.2 (0.7-1.1cm)Left Atrium (MM)3.6 (1.6-4.0cm) LVDd4.9 (3.5-5.6cm)Aortic Root3.5 (2.0-3.7cm) PWd1.3 (0.7-1.1cm)Aortic Cusp Exc.2.4 (1.5-2.0cm) LVDs2.9 (2.5-4.0cm) PWs1.9 cm Normal left ventricular chamber size, systolic function and wall motion. Left ventricular ejection fraction estimated to be 55 %. Mild left ventricular hypertrophy. Anterior Echo-free space, may be due to pericardial fat or effusion. All other cardiac chamber sizes are within normal limits. Focal aortic valve sclerosis with adequate cusp excursion. Thickened mitral valve leaflets with normal excursion. Mitral annulus and aortic root calcification. Pulmonic valve not well visualized. Normal tricuspid valve structure. IVC dilated at 2.4 cm without physiological collapse, suggestive of increased RA pressure. A color flow and spectral Doppler study was performed and revealed: No aortic insufficiency. Trace mitral regurgitation. reduced left ventricular relaxation c/w impaired relaxation diastolic dysfunction. Trace tricuspid regurgitation. Tricuspid systolic velocities suggests peak right ventricular systolic pressure of 39 mmHg, consistent with mild pulmonary hypertension. No pulmonic regurgitation present.
--- NOTE | 2018-09-25 14:36 | Cardiology Report ---
APPROVED REPORT EKG Measurement Heart [id number] Sinus rhythm with premature atrial complexes Cannot rule out Anterior infarct, age undetermined Abnormal ECG
--- NOTE | 2018-09-27 12:15 | History and Physical Report ---
HISTORY OF PRESENT ILLNESS: The patient is a 53-year-old male, who came to the emergency room for having a left-sided chest pain like pressure for one day prior to admission. The patient is currently awake, alert, and comfortable. He also had a fall and had bruises on the left forehead, claims that he had slipped. He is not short of breath. No palpitation. He has no evidence of other injury. PAST MEDICAL HISTORY: Significant for cirrhosis and history of alcohol abuse. He claims he quit alcohol three months ago, has been taking lactulose. PHYSICAL EXAMINATION: GENERAL: This is an elderly male, currently comfortable. VITAL SIGNS: Blood pressure 112/70, pulse 60, and respirations 18. No fever. SKIN: Good skin turgor, has a bruise on the left eyebrow. HEENT: NAD. CHEST: Bilaterally clear. CARDIOVASCULAR: Regular rhythm. No gallop. No murmur. ABDOMEN: Soft. Positive bowel sounds. EXTREMITIES: No CCE. NEUROLOGICAL: No focal deficit. LABORATORY DATA: His ammonia level is normal. Troponin is slightly high. ASSESSMENT: 1. Acute coronary syndrome. 2. Cirrhosis. 3. Alcohol abuse. 4. Fall. PLAN: 1. We will admit on telemetry bed and rule out VT. 2. Consider Cardiology consult. 3. Continue lactulose. 4. Continue aspirin and Tylenol, and add [place] for severe pain. 5. Discussed with charge nurse. Kristofer Simons M.D. DR: COLLETTE JOB#: [id number] CC:
== END 2018-09-23 18:15 | disposition home or self-care (01) | DRG 198 ==
LOC: EDBD 15:34 → EMR 16:07 → EDBEDREQSVC 17:28 → EDBEDREQ 17:28 → 2E 17:35 → EDBEDREQ 18:19
DX: I24.9 Acute ischemic heart disease, unspecified (principal); D61.818 Other pancytopenia; I27.20 Pulmonary hypertension, unspecified; K70.31 Alcoholic cirrhosis of liver with ascites; M51.36 Other intervertebral disc degeneration, lumbar region; D63.8 Anemia in other chronic diseases classified elsewhere; N62 Hypertrophy of breast; I10 Essential (primary) hypertension; Z72.0 Tobacco use
CPT/HCPCS: 36415; 71045; 71260; 78452; 80048; 80053; 82550; 82553; 83690; 83880; 84484; 85025; 85610; 85730; 86140; 93005; 93017; 93306; 93880; 96374; 96375; 96376; 99285; J2785